=== PATIENT | male | born 1960 | race American Indian/Alaskan Native ===

== ENCOUNTER 2017-05-21 21:21 | Inpatient (IN) | payer MEDICAID ==
[2017-05-21 22:11] LABS: Bilirubin,Urine NEG (Negative); Blood,Urine NEG (Negative); Color,Urine Colorless (Yellow); Mucus,Urine FEW /HPF; Urobilinogen,Urine < 2.0 mg/dL (<2.0)
[2017-05-21 22:15] LABS: WBC,Urine < 1.0 /HPF (0.0-6.0)
[2017-05-21 22:21] LABS: Basophils # (Auto) 0.1 K/mm3 (0.0-0.1); Basophils % (Auto) 1.1 % (0.0-1.8); Eosinophils # (Auto) 0.2 K/mm3 (0.0-0.4); Eosinophils % (Auto) 3.6 % (0.0-4.3); Hematocrit 31.6 % (35.5-45.6); Hemoglobin 10.1 gm/dl (11.8-15.2); Lymphocytes # (Auto) 1.2 K/mm3 (1.2-5.4); Lymphocytes % (Auto) 20.4 % (13.4-35.0); Mean Corpuscular HGB Conc 32 % (32-34); Mean Corpuscular Hemoglobin 27 pg (28-32); Mean Corpuscular Volume 85 fl (84-94); Monocytes # (Auto) 0.5 K/mm3 (0.0-0.8); Monocytes % (Auto) 8.5 % (0.0-7.3); Platelet Count 267 K/mm3 (140-440); Red Blood Count 3.73 M/mm3 (3.65-5.03); Red Cell Distribution Width 14.3 % (13.2-15.2)
[2017-05-21 22:26] LABS: Amphetamine Screen,Urine PRESUMPTIVE NEGATIVE; Benzodiazepines Screen,Urine PRESUMPTIVE NEGATIVE; Cannabinoid Screen,Urine PRESUMPTIVE NEGATIVE; Cocaine Screen,Urine PRESUMPTIVE NEGATIVE; Methadone Screen,Urine PRESUMPTIVE NEGATIVE; Opiate Screen,Urine PRESUMPTIVE NEGATIVE
[2017-05-21] MEDS ORDERED: APRESOLINE IV ONE (22:39)
--- NOTE | 2017-05-21 22:49 | Cat Scan Report ---
FINAL REPORT PROCEDURE: CT HEAD/BRAIN WO CON TECHNIQUE: Computerized tomography of the head was performed without contrast material. HISTORY: Altered mental status COMPARISON: No prior studies are available for comparison. FINDINGS: No CT evidence of intracranial mass, hemorrhage, acute territorial infarction, or hydrocephalus. The intracranial arteries are symmetric in density. There is posterior scalp skin thickening and subcutaneous edema. No acute fracture is seen. Visualized paranasal sinuses and mastoids are aerated. IMPRESSION: No CT evidence of acute intracranial abnormality. Significant posterior scalp soft tissue swelling and skin thickening, possibly posttraumatic or related to infectious process. Correlate clinically
[2017-05-21 23:20] LABS: Albumin 3.9 g/dL (3.9-5); Calcium 8.7 mg/dL (8.4-10.2)
[2017-05-21] MEDS ORDERED: NACL 0.9% 1000 ML 1,000 ML IV ONE ×2 (23:39→23:44)
[2017-05-21] MEDS ORDERED: CALCIUM GLUCONATE 2,000 MG in NACL 0.9% 100 ML IV ONE (23:39)
[2017-05-21] MEDS ORDERED: HumuLIN R IV ONE (23:39)
[2017-05-21] MEDS ORDERED: D50W (25GM) Syringe IV ONE (23:39)
[2017-05-21] MEDS ORDERED: PROVENTIL IH ONE (23:40)
[2017-05-21] MEDS ORDERED: D50W (25GM) Syringe IV PRN (23:43)
[2017-05-21] MEDS ORDERED: KIONEX PO ONE (23:43)
[2017-05-21] MEDS ORDERED: HumuLIN R 100 UNITS in NACL 0.9% 99 ML IV SCH (23:45)
--- NOTE | 2017-05-21 23:45 | Emergency Department Report ---
ED General Adult HPI - General Chief complaint: Altered Mental Status Stated complaint: AMS Time Seen by Provider: 05/21/17 22:26 Source: family, EMS Mode of arrival: Stretcher Limitations: Altered Mental Status - History of Present Illness Initial comments: Patient is a 57-year-old male past medical history of hypertension and diabetes who presents with altered mental status. History is limited due to patient's altered mental status history is obtained by patient's daughter. Patient was the patient's daughter. She states that patient has been acting confused and is not asB responsive as he normally is. Patient's daughter states that he just has diabetes and high blood pressure but he has been confused like this before in the past. Patient has no fever no vomiting and is not complaining of any pain. - Related Data Allergies Allergy/AdvReac Type Severity Reaction Status Date / Time No Known Allergies Allergy Verified 05/21/17 23:40 ED Review of Systems ROS: Stated complaint: AMS Other details as noted in HPI Comment: Unobtainable due to pts medical conditions (altered mental status) ED Past Medical Hx - Past Medical History Hx Hypertension: Yes Hx Diabetes: Yes - Surgical History Past Surgical History?: No ED Physical Exam - General Limitations: Altered Mental Status ED Course Vital Signs 05/21/17 05/21/17 05/21/17 22:24 22:26 22:31 Temperature Pulse Rate 81 81 Respiratory 14 20 Rate Blood Pressure 228/117 Blood Pressure [Right] O2 Sat by Pulse 98 98 100 Oximetry 05/21/17 05/21/17 05/21/17 22:35 22:38 22:40 Temperature 97.9 F Pulse Rate 82 82 80 Respiratory 8 L 20 10 L Rate Blood Pressure 228/117 228/117 216/120 Blood Pressure 228/117 [Right] O2 Sat by Pulse 99 98 99 Oximetry 05/21/17 05/21/17 05/21/17 22:45 22:48 22:49 Temperature Pulse Rate 85 82 Respiratory 13 20 Rate Blood Pressure 216/120 Blood Pressure [Right] O2 Sat by Pulse 98 98 Oximetry 05/21/17 05/21/17 05/21/17 22:51 22:55 23:00 Temperature Pulse Rate 80 83 89 Respiratory 9 L 12 11 L Rate Blood Pressure 216/120 216/120 206/99 Blood Pressure [Right] O2 Sat by Pulse 98 96 98 Oximetry 05/21/17 05/21/1705/21/18 23:05 23:11 23:15 Temperature Pulse Rate 91 H 90 92 H Respiratory 14 17 13 Rate Blood Pressure 206/99 206/99 206/99 Blood Pressure [Right] O2 Sat by Pulse 100 100 99 Oximetry 05/21/17 05/21/17 23:20 23:25 Temperature Pulse Rate 88 91 H Respiratory 13 20 Rate Blood Pressure 189/96 189/96 Blood Pressure [Right] O2 Sat by Pulse 100 98 Oximetry - Consultations Consultation #1: 05/22/17 00:05 Consulted with pharmaceutical analyst conventional mortgage underwriter . He recommended patient to have Montilla placed and IV fluids and a dose of Kayexalate. He also recommended patient to be started on insulin drip. ED Medical Decision Making - Lab Data Result diagrams: 05/21/17 22:09 05/21/17 22:46 Lab Results 05/21/17 05/21/17 05/21/17 Range/Units 22:09 22:09 22:46 WBC 5.8 (4.5-11.0) K/mm3 RBC 3.73 (3.65-5.03) M/mm3 Hgb 10.1 L (11.8-15.2) gm/dl Hct 31.6 L (35.5-45.6) % MCV 85 (84-94) fl MCH 27 L (28-32) pg MCHC 32 (32-34) % RDW 14.3 (13.2-15.2) % Plt Count 267 (140-440) K/mm3 Lymph % (Auto) 20.4 (13.4-35.0) % [place] % (Auto) 8.5 H (0.0-7.3) % Eos % (Auto) 3.6 (0.0-4.3) % Baso % (Auto) 1.1 (0.0-1.8) % Lymph # 1.2 (1.2-5.4) K/mm3 [place] # 0.5 (0.0-0.8) K/mm3 Eos # 0.2 (0.0-0.4) K/mm3 Baso # 0.1 (0.0-0.1) K/mm3 Seg Neutrophils % 66.4 (40.0-70.0) % Seg Neutrophils # 3.9 (1.8-7.7) K/mm3 Sodium 121 L (137-145) mmol/L Potassium 6.7 H* (3.6-5.0) mmol/L Chloride 83.2 L (98-107) mmol/L Carbon Dioxide 26 (22-30) mmol/L Anion Gap 19 mmol/L BUN 22 H (9-20) mg/dL Creatinine 1.8 H (0.8-1.5) mg/dL Estimated GFR 47 ml/min BUN/Creatinine Ratio 12 % Glucose 831 H* (75-100) mg/dL Calcium 8.7 (8.4-10.2) mg/dL Total Bilirubin 0.20 (0.1-1.2) mg/dL AST 13 (5-40) units/L ALT 11 (7-56) units/L Alkaline Phosphatase 124 (35-129) units/L Total Protein 7.4 (6.3-8.2) g/dL Albumin 3.9 (3.9-5) g/dL Albumin/Globulin Ratio 1.1 % TSH (0.270-4.200) mlU/mL Urine Color (Yellow) Urine Turbidity (Clear) Urine pH (5.0-7.0) Ur Specific [place] (1.003-1.030) Urine Protein (Negative) mg/dL Urine Glucose (UA) (Negative) mg/dL Urine Ketones (Negative) mg/dL Urine Blood (Negative) Urine Nitrite (Negative) Urine Bilirubin (Negative) Urine Urobilinogen (<2.0) mg/dL Ur Leukocyte Esterase (Negative) Urine WBC (Auto) (0.0-6.0) /HPF Urine RBC (Auto) (0.0-6.0) /HPF Urine Mucus /HPF Urine Opiates Screen Urine Methadone Screen Ur Barbiturates Screen Ur Phencyclidine Scrn Ur Amphetamines Screen U Benzodiazepines Scrn Urine Cocaine Screen U Marijuana (THC) Screen Drugs of Abuse Note Plasma/Serum Alcohol < 0.01 (0-0.07) % 05/21/17 05/21/17 05/21/17 Range/Units 22:46 Unknown Unknown WBC (4.5-11.0) K/mm3 RBC (3.65-5.03) M/mm3 Hgb (11.8-15.2) gm/dl Hct (35.5-45.6) % MCV (84-94) fl MCH (28-32) pg MCHC (32-34) % RDW (13.2-15.2) % Plt Count (140-440) K/mm3 Lymph % (Auto) (13.4-35.0) % [place] % (Auto) (0.0-7.3) % Eos % (Auto) (0.0-4.3) % Baso % (Auto) (0.0-1.8) % Lymph # (1.2-5.4) K/mm3 [place] # (0.0-0.8) K/mm3 Eos # (0.0-0.4) K/mm3 Baso # (0.0-0.1) K/mm3 Seg Neutrophils % (40.0-70.0) % Seg Neutrophils # (1.8-7.7) K/mm3 Sodium (137-145) mmol/L Potassium (3.6-5.0) mmol/L Chloride (98-107) mmol/L Carbon Dioxide (22-30) mmol/L Anion Gap mmol/L BUN (9-20) mg/dL Creatinine (0.8-1.5) mg/dL Estimated GFR ml/min BUN/Creatinine Ratio % Glucose (75-100) mg/dL Calcium (8.4-10.2) mg/dL Total Bilirubin (0.1-1.2) mg/dL AST (5-40) units/L ALT (7-56) units/L Alkaline Phosphatase (35-129) units/L Total Protein (6.3-8.2) g/dL Albumin (3.9-5) g/dL Albumin/Globulin Ratio % TSH 1.420 (0.270-4.200) mlU/mL Urine Color Colorless (Yellow) Urine Turbidity Clear (Clear) Urine pH 7.0 (5.0-7.0) Ur Specific [place] 1.017 (1.003-1.030) Urine Protein 30 mg/dl (Negative) mg/dL Urine Glucose (UA) >=500 (Negative) mg/dL Urine Ketones Neg (Negative) mg/dL Urine Blood Neg (Negative) Urine Nitrite Neg (Negative) Urine Bilirubin Neg (Negative) Urine Urobilinogen < 2.0 (<2.0) mg/dL Ur Leukocyte Esterase Neg (Negative) Urine WBC (Auto) < 1.0 (0.0-6.0) /HPF Urine RBC (Auto) 1.0 (0.0-6.0) /HPF Urine Mucus Few /HPF Urine Opiates Screen Presumptive negative Urine Methadone Screen Presumptive negative Ur Barbiturates Screen Presumptive negative Ur Phencyclidine Scrn Presumptive negative Ur Amphetamines Screen Presumptive negative U Benzodiazepines Scrn Presumptive negative Urine Cocaine Screen Presumptive negative U Marijuana (THC) Screen Presumptive negative Drugs of Abuse Note Disclamer Plasma/Serum Alcohol (0-0.07) % - EKG Data -: EKG Interpreted by Me - EKG Data 05/22/17 00:03 EKG shows sinus rhythm with LVH no ST segment elevation noted, no T-wave inversion no, Peaked T waves, normal axis - Radiology Data Radiology results: image reviewed CT head: Shows no acute intracranial abnormality Left foot x-ray: Postoperative changes of amputation no acute abnormality. - Medical Decision Making Chief medical diagnosis: Hyperosmolar non ketotic state differential medical diagnosis: DKA, Hyperkalemia, dehydration, subdural hemorrhage. I will get IV fluids, insulin drip, nephrology consult, EKG, CBC, BMP, IV calcium, albuterol and I will admit patient to the hospital due to patient's life-threatening condition. Discussed plan with patient's daughter. Patient's daughter Agrees with plan. Critical Care Time: Yes (35) Critical care time in (mins) excluding proc time.: 35 Critical care attestation.: If time is entered above; I have spent that time in minutes in the direct care of this critically ill patient, excluding procedure time. Critical care time spent at patient's bedside 20 minutes Critical care time spent with consultants 10 minutes Critical care time spent with patient's family 5 minutes ED Disposition Clinical Impression: Hyperkalemia, Dehydration, CHIDI (acute kidney injury), Encephalopathy Hyperglycemia due to type 2 diabetes mellitus Qualifiers: Diabetes mellitus mcc insulin use: unspecified applications programmer insulin use status Qualified Code(s): E11.65 - Type 2 diabetes mellitus with hyperglycemia Disposition: OP ADMIT IP TO THIS HOSP Is pt being admited?: No Does the pt Need Aspirin: No Condition: Serious Instructions: Diabetes Mellitus Type 2 in Adults (ED) Referrals: ADRIANNA ROYAL MD [Primary Care Provider] - 3-5 Days
--- NOTE | 2017-05-22 | XRay Report ---
FINAL REPORT PROCEDURE: XR FOOT 2V LT TECHNIQUE: LEFT foot radiographs, AP and lateral views. HISTORY: diabetic ulcer COMPARISON: No prior studies are available for comparison. FINDINGS: There has been amputation of the 4th and 5th digits at the metatarsal bones. Graft there is no acute fracture or malalignment. There is no destructive bony process. Soft tissues are within normal limits. There is a small inferior calcaneal spur. IMPRESSION: There are postsurgical changes as described. There is no acute bony or soft tissue abnormality.
[2017-05-22] MEDS ORDERED: D50W (25GM) Syringe IV PRN (00:30)
[2017-05-22] MEDS ORDERED: NACL 0.9% 1000 ML 2,000 ML IV ONE (00:30)
[2017-05-22] MEDS ORDERED: ZOFRAN IV PRN ×2 (00:32→00:36)
[2017-05-22] MEDS ORDERED: TYLENOL PO PRN ×2 (00:32→00:36)
[2017-05-22] MEDS ORDERED: SODIUM CHLORIDE FLUSH SYRINGE 10 ML IV PRN ×2 (00:32→00:36)
[2017-05-22] MEDS ORDERED: MILK OF MAGNESIA PO PRN (00:36)
[2017-05-22] MEDS ORDERED: REGLAN PO PRN (00:36)
[2017-05-22] MEDS ORDERED: DULCOLAX PR PRN (00:36)
[2017-05-22] MEDS ORDERED: PHENERGAN PR PRN (00:36)
[2017-05-22 00:46] LABS: Calcium 8.9 mg/dL (8.4-10.2)
--- NOTE | 2017-05-22 00:57 | History and Physical Report ---
History of Present Illness Date of examination: 05/22/17 Chief complaint: Confusion History of present illness: 57 year old -[place] male with past medical history significant for type 2 diabetes mellitus, medication noncompliance, diabetic foot ulcer status post amputation of the the left toe, hypertension, congestive heart failure presented to the emergency department for complaints of confusion. Last night the patient tried to text his daughter but he couldn't. He became confused and dysarthria. Per his daughter the patient has right facial droop with right arm weakness that resolved. Denied loss of consciousness, seizure activity, chest pain, fever. Patient didn't take any insulin since last October. The emergency department glucose level was in the 800s, he has CHIDI with hyperkalemia, blood pressure was in the 200s. Patient started on insulin drip, workup for stroke, left foot abscess. Patient admitted to ICU for further management. History is obtained from patient and his daughter. Patient moved from [place] a year ago. REVIEW OF SYSTEMS: GENERAL: no weight change, no fatigue, no fever HEAD: no head ache EYES: no blurry vision, no acute visual loss EARS: no hearing loss, no discharge, no earache NOSE: no stuffiness, no sneezing, no discharge MOUTH, THROAT AND NECK: no bleeding gums, no sore throat, no swollen neck CARDIAC: no palpitations, no dyspnea on exertion, no orthopnea, no PND, no edema , no chest pain RESPIRATORY: no shortness of breath, no wheeze, no cough, no sputum, no hemoptysis, no asthma GI: no decreased appetite, no nausea, no vomiting, no dysphagia, no diarrhea, no constipation, no abdominal pain URINARY: no change in frequency, no urgency, no polyuria, no hematuria, no incontinence MUSCULOSKELETAL: left foot ulcer NEUROLOGIC: no loss of sensation/numbness, no tingling, no tremors, no weakness/ paralysis HEMATOLOGIC: no anemia, no easy bruising ENDOCRINE: no heat/cold intolerance, no polyuria, no polydipsia, no thyroid problems PSYCHIATRIC: no anxiety, no depression, no suicidal ideations Past History Past Medical History: diabetes, heart failure, hypertension Past Surgical History: Other ( left foot surgery) Social history: full code. denies: smoking, alcohol abuse, prescription drug abuse, IV drug use Family history: CAD (runs in the family), diabetes (runs in the family) Medications and Allergies Allergies Allergy/AdvReac Type Severity Reaction Status Date / Time No Known Allergies Allergy Verified 05/21/17 23:40 Active Meds: Active Medications Acetaminophen (Tylenol) 650 mg PO Q4H PRN PRN Reason: Pain MILD(1-3)/Fever >100.5/VILLAFUERTE Acetaminophen (Tylenol) 650 mg PO Q4H PRN PRN Reason: Pain, Mild (1-3) Aspirin (Aspirin) 300 mg IN QDAY SHANNON Bisacodyl (Dulcolax) 10 mg IN QDAY PRN PRN Reason: Constipation Dextrose (D50w (25gm) Syringe) 0 ml IV PRN PRN PRN Reason: Hypoglycemia Famotidine (Pepcid) 20 mg IV BID SHANNON Heparin Sodium (Porcine) (Heparin) 5,000 unit SUB-Q Q12HR SHANNON Insulin Human Regular 100 (units/ Sodium Chloride) 100 mls @ 1 mls/hr IV TITR SHANNON; Protocol Stop: 05/22/17 00:59 Last Admin: 05/22/17 00:36 Dose: 8 units/hr, 8 mls/hr Sodium Chloride (Nacl 0.9% 1000 Ml) 2,000 mls @ 999 mls/hr IV BOLUS ONE Stop: 05/22/17 02:30 Insulin Human Regular 100 (units/ Sodium Chloride) 100 mls @ 1 mls/hr IV TITR SHANNON; Protocol Vancomycin HCl 2,000 mg/ (Sodium Chloride) 520 mls @ 250 mls/hr IV ONCE ONE Stop: 05/22/17 03:04 Nicardipine HCl 50 mg/ Sodium (Chloride) 250 mls @ 25 mls/hr IV TITR SHANNON; Protocol Magnesium Hydroxide (Milk Of Magnesia) 30 ml PO Q4H PRN PRN Reason: Constipation Metoclopramide HCl (Reglan) 10 mg PO Q6H PRN PRN Reason: Nausea And Vomiting Morphine Sulfate (Morphine) 2 mg IV Q4H PRN PRN Reason: Pain , Severe (7-10) Ondansetron HCl (Zofran) 4 mg IV Q8H PRN PRN Reason: Nausea And Vomiting Ondansetron HCl (Zofran) 4 mg IV Q8H PRN PRN Reason: N/V unrelieved by Reglan Promethazine HCl (Phenergan) 25 mg IN Q6H PRN PRN Reason: Nausea And Vomiting Sodium Chloride (Sodium Chloride Flush Syringe 10 Ml) 10 ml IV BID SHANNON Sodium Chloride (Sodium Chloride Flush Syringe 10 Ml) 10 ml IV PRN PRN PRN Reason: LINE FLUSH Sodium Chloride (Sodium Chloride Flush Syringe 10 Ml) 10 ml INJ PRN PRN PRN Reason: LINE FLUSH Vancomycin HCl (Vancomycin Pharmacy To Dose) 1 each IV PKCONSULT SHANNON; Protocol Exam - Physical Exam Narrative exam: Not in cardiopulmonary distress. The patient is obese. Vital signs as documented. Head exam is unremarkable. No scleral icterus . Neck is without jugular venous distension, thyromegaly, or carotid bruits. Lungs are clear to auscultation. Cardiac exam reveals regular rate and Rhythm. First and second heart sounds normal. No murmurs, rubs or gallops. Abdominal exam reveals normal bowel sounds, no masses, no organomegaly and no aortic enlargement. Extremities right toe amputation, abscess. [employer]: Alert and oriented 3. No focal weakness. - Constitutional Vitals: Temp Pulse Resp BP Pulse Ox 97.9 F 85 22 189/96 98 05/21/17 22:38 05/21/17 23:50 05/21/17 23:50 05/21/17 23:25 05/21/17 23:25 Results - Labs CBC & Chem 7: 05/21/17 22:09 05/22/17 00:01 Labs: Laboratory Last Values WBC 5.8 K/mm3 (4.5-11.0) 05/21/17 22:09 RBC 3.73 M/mm3 (3.65-5.03) 05/21/17 22:09 Hgb 10.1 gm/dl (11.8-15.2) L 05/21/17 22:09 Hct 31.6 % (35.5-45.6) L 05/21/17 22:09 MCV 85 fl (84-94) 05/21/17 22:09 MCH 27 pg (28-32) L 05/21/17 22:09 MCHC 32 % (32-34) 05/21/17 22:09 RDW 14.3 % (13.2-15.2) 05/21/17 22:09 Plt Count 267 K/mm3 (140-440) 05/21/17 22:09 Lymph % (Auto) 20.4 % (13.4-35.0) 05/21/17 22:09 Esmeralda % (Auto) 8.5 % (0.0-7.3) H 05/21/17 22:09 Eos % (Auto) 3.6 % (0.0-4.3) 05/21/17 22:09 Baso % (Auto) 1.1 % (0.0-1.8) 05/21/17 22:09 Lymph # 1.2 K/mm3 (1.2-5.4) 05/21/17 22:09 Esmeralda # 0.5 K/mm3 (0.0-0.8) 05/21/17 22:09 Eos # 0.2 K/mm3 (0.0-0.4) 05/21/17 22:09 Baso # 0.1 K/mm3 (0.0-0.1) 05/21/17 22:09 Seg Neutrophils % 66.4 % (40.0-70.0) 05/21/17 22:09 Seg Neutrophils # 3.9 K/mm3 (1.8-7.7) 05/21/17 22:09 Sodium 124 mmol/L (137-145) L 05/22/17 00:01 Potassium 6.7 mmol/L (3.6-5.0) H* 05/21/17 22:46 Chloride 86.0 mmol/L (98-107) L 05/22/17 00:01 Carbon Dioxide 22 mmol/L (22-30) 05/22/17 00:01 Anion Gap 21 mmol/L 05/22/17 00:01 BUN 22 mg/dL (9-20) H 05/22/17 00:01 Creatinine 1.7 mg/dL (0.8-1.5) H 05/22/17 00:01 Estimated GFR 50 ml/min 05/22/17 00:01 BUN/Creatinine Ratio 13 % 05/22/17 00:01 Glucose 831 mg/dL (75-100) H* 05/21/17 22:46 Calcium 8.9 mg/dL (8.4-10.2) 05/22/17 00:01 Phosphorus 2.20 mg/dL (2.5-4.5) L 05/22/17 00:01 Magnesium 2.20 mg/dL (1.7-2.3) 05/22/17 00:01 Total Bilirubin 0.20 mg/dL (0.1-1.2) 05/21/17 22:46 AST 13 units/L (5-40) 05/21/17 22:46 ALT 11 units/L (7-56) 05/21/17 22:46 Alkaline Phosphatase 124 units/L (35-129) 05/21/17 22:46 Total Protein 7.4 g/dL (6.3-8.2) 05/21/17 22:46 Albumin 3.9 g/dL (3.9-5) 05/21/17 22:46 Albumin/Globulin Ratio 1.1 % 05/21/17 22:46 TSH 1.420 mlU/mL (0.270-4.200) 05/21/17 22:46 Urine Color Colorless (Yellow) 05/21/17 Unknown Urine Turbidity Clear (Clear) 05/21/17 Unknown Urine pH 7.0 (5.0-7.0) 05/21/17 Unknown Ur Specific [place] 1.017 (1.003-1.030) 05/21/17 Unknown Urine Protein 30 mg/dl mg/dL (Negative) 05/21/17 Unknown Urine Glucose (UA) >=500 mg/dL (Negative) 05/21/17 Unknown Urine Ketones Neg mg/dL (Negative) 05/21/17 Unknown Urine Blood Neg (Negative) 05/21/17 Unknown Urine Nitrite Neg (Negative) 05/21/17 Unknown Urine Bilirubin Neg (Negative) 05/21/17 Unknown Urine Urobilinogen < 2.0 mg/dL (<2.0) 05/21/17 Unknown Ur Leukocyte Esterase Neg (Negative) 05/21/17 Unknown Urine WBC (Auto) < 1.0 /HPF (0.0-6.0) 05/21/17 Unknown Urine RBC (Auto) 1.0 /HPF (0.0-6.0) 05/21/17 Unknown Urine Mucus Few /HPF 05/21/17 Unknown Urine Opiates Screen Presumptive negative 05/21/17 Unknown Urine Methadone Screen Presumptive negative 05/21/17 Unknown Ur Barbiturates Screen Presumptive negative 05/21/17 Unknown Ur Phencyclidine Scrn Presumptive negative 05/21/17 Unknown Ur Amphetamines Screen Presumptive negative 05/21/17 Unknown U Benzodiazepines Scrn Presumptive negative 05/21/17 Unknown Urine Cocaine Screen Presumptive negative 05/21/17 Unknown U Marijuana (THC) Screen Presumptive negative 05/21/17 Unknown Drugs of Abuse Note Disclamer 05/21/17 Unknown Plasma/Serum Alcohol < 0.01 % (0-0.07) 05/21/17 22:09 - Imaging and Cardiology EKG: image reviewed (NSR, no acute ischemia) CT Scan - head: report reviewed (no acute intracrania abnormalities) Assessment and Plan Assessment and plan: [facility] - Patient's blood sugar is the 800's - Patient is being managed according to [facility] protocol Hypertensive emergency - On nicardipine drip Acute metabolic encephalopathy/ hypertensive encephalopathy - Manage underlying cause - Supportive care TIA, right facial droop and arm weakness, now resolved - Stroke work up - Neurology consult Left Diabetic foot ulcer/ abscess - Wound culture, MRI - On IV antibiotics, ID and wound surgeon consult, wound care nurse consult Medication non compliance due to insurance issue - 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 The aggregate critical care time was [45] minutes. This time is in addition to time spent performing reported procedures but includes the following: [x] Data Review and interpretation [x] Patient assessment and monitoring of vital signs [x] Documentation [x] Medication orders and management DVT prophylaxis - On heparin Disposition - Admit to ICU Advance Directives: Yes (Full code) VTE prophylaxis?: Chemical Plan of care discussed with patient/family: Yes
[2017-05-22] MEDS ORDERED: CARDENE 50 MG in NACL 0.9% 250ML 230 ML IV SCH (01:00)
[2017-05-22] MEDS ORDERED: VANCOMYCIN 2,000 MG in NACL 0.9% 500 ML 500 ML IV ONE (01:00)
[2017-05-22] MEDS ORDERED: VANCOMYCIN PHARMACY TO DOSE IV SCH (01:00)
--- NOTE | 2017-05-22 01:07 | XRay Report ---
FINAL REPORT PROCEDURE: XR CHEST 1V AP TECHNIQUE: Chest radiograph anteroposterior view. CPT 97936 HISTORY: hyperkalemia COMPARISON: No prior studies are available for comparison. FINDINGS: Heart: Normal. Mediastinum/Vessels: Normal. Lungs/Pleural space: There is suboptimal inspiration. There are no infiltrates, effusions or pneumothoraces.. Bony thorax: No acute osseous abnormality. Life support devices: None. IMPRESSION: No acute cardiopulmonary abnormality.
[2017-05-22] MEDS: HumuLIN R 100 UNITS in NACL 0.9% 99 ML IV SCH ×3 (01:25→03:54)
[2017-05-22] MEDS ORDERED: NACL 0.9% 1000 ML 1,000 ML ONE (02:02)
[2017-05-22 02:57] LABS: INR 0.84 (0.87-1.13)
[2017-05-22 03:06] LABS: Calcium 8.9 mg/dL (8.4-10.2)
[2017-05-22 03:08] LABS: Creatine Kinase MB 1.8 ng/mL (0.0-4.0)
[2017-05-22] MEDS ORDERED: MORPHINE ONE (03:44)
[2017-05-22] MEDS: MORPHINE IV PRN ×2 (04:02→09:25)
[2017-05-22] MEDS ORDERED: D5/0.45NS 1,000 ML IV SCH (06:26)
[2017-05-22] MEDS ORDERED: LEVEMIR (NF) SUB-Q SCH (08:00)
[2017-05-22] MEDS: HEPARIN SUB-Q SCH ×2 (09:31→21:24)
[2017-05-22] MEDS: PEPCID IV SCH ×2 (09:31→21:24)
[2017-05-22] MEDS: ASPIRIN PR SCH (09:31)
[2017-05-22] MEDS: SODIUM CHLORIDE FLUSH SYRINGE 10 ML IV SCH ×2 (10:00→21:31)
[2017-05-22] MEDS ORDERED: NORVASC PO SCH (11:00)
[2017-05-22] MEDS: LOPRESSOR PO SCH ×2 (11:02→21:24)
--- NOTE | 2017-05-22 11:04 | Consultation ---
History of Present Illness Consult date: 05/22/17 Requesting physician: STEPHANIE MCGEE Reason for consult: other (DKA, malignant hypertension) History of present illness: 57 year old -[place] male with past medical history significant for type 2 diabetes mellitus, medication noncompliance, diabetic foot ulcer status post amputation of the the left toe, hypertension, congestive heart failure presented to the emergency department for complaints of confusion. Last night the patient tried to text his daughter but he couldn't. He became confused and dysarthria. Per his daughter the patient has right facial droop with right arm weakness that resolved. Denied loss of consciousness, seizure activity, chest pain, fever. Patient didn't take any insulin since last October. The emergency department glucose level was in the 800s, he has CHIDI with hyperkalemia, blood pressure was in the 200s. Patient started on insulin drip, workup for stroke, left foot abscess. Patient admitted to ICU for further management. History is per the medical records. Patient moved from [place] a year ago. Patient was seen and examined. Vitals, labs, medications, chart reviewed. He complains of pain in his foot. IV morphine was administered by the RN, currently very sleepy and cannot stay awake long enough for me to get a hisotry. He will give monosyllabic answers to questions and he is protecting his airway. RN reports difficulty in controlling his BP...cardene infusion was discontinued this morning. REVIEW OF SYSTEMS: GENERAL: no weight change, no fatigue, no fever HEAD: no head ache EYES: no blurry vision, no acute visual loss EARS: no hearing loss, no discharge, no earache NOSE: no stuffiness, no sneezing, no discharge MOUTH, THROAT AND NECK: no bleeding gums, no sore throat, no swollen neck CARDIAC: no palpitations, no dyspnea on exertion, no orthopnea, no PND, no edema , no chest pain RESPIRATORY: no shortness of breath, no wheeze, no cough, no sputum, no hemoptysis, no asthma GI: no decreased appetite, no nausea, no vomiting, no dysphagia, no diarrhea, no constipation, no abdominal pain URINARY: no change in frequency, no urgency, no polyuria, no hematuria, no incontinence MUSCULOSKELETAL: left foot ulcer with pain NEUROLOGIC: no loss of sensation/numbness, no tingling, no tremors, no weakness/ paralysis HEMATOLOGIC: no anemia, no easy bruising ENDOCRINE: no heat/cold intolerance, no polyuria, no polydipsia, no thyroid problems PSYCHIATRIC: no anxiety, no depression, no suicidal ideations Past History Past Medical History: diabetes, heart failure, hypertension Past Surgical History: Other ( left foot surgery) Social history: full code. denies: smoking, alcohol abuse, prescription drug abuse, IV drug use Family history: CAD (runs in the family), diabetes (runs in the family) Medications and Allergies Allergies Allergy/AdvReac Type Severity Reaction Status Date / Time No Known Allergies Allergy Verified 05/21/17 23:40 Active Meds: Active Medications Acetaminophen (Tylenol) 650 mg PO Q4H PRN PRN Reason: Pain MILD(1-3)/Fever >100.5/VILLAFUERTE Amlodipine Besylate (Norvasc) 5 mg PO QDAY [facility] Aspirin (Aspirin) 300 mg [place] QDAY [facility] Last Admin: 05/22/17 09:31 Dose: 300 mg Bisacodyl (Dulcolax) 10 mg [place] QDAY PRN PRN Reason: Constipation Dextrose (D50w (25gm) Syringe) 0 ml IV PRN PRN PRN Reason: Hypoglycemia Famotidine (Pepcid) 20 mg IV BID [facility] Last Admin: 05/22/17 09:31 Dose: 20 mg Heparin Sodium (Porcine) (Heparin) 5,000 unit SUB-Q Q12HR [facility] Last Admin: 05/22/17 09:31 Dose: 5,000 unit Insulin Human Regular 100 (units/ Sodium Chloride) 100 mls @ 1 mls/hr IV TITR [facility]; Protocol Last Titration: 05/22/17 10:14 Dose: 1.5 units/hr, 1.5 mls/hr Nicardipine HCl 50 mg/ Sodium (Chloride) 250 mls @ 25 mls/hr IV TITR [facility]; Protocol Last Titration: 05/22/17 05:00 Dose: 0 mg/hr, 0 mls/hr Vancomycin HCl 1,750 mg/ (Sodium Chloride) 517.5 mls @ 333.333 mls/hr IV Q12H [facility] Dextrose/Sodium Chloride (D5/0.45ns) 1,000 mls @ 125 mls/hr IV DIRECT [facility] Magnesium Hydroxide (Milk Of Magnesia) 30 ml PO Q4H PRN PRN Reason: Constipation Metoclopramide HCl (Reglan) 10 mg PO Q6H PRN PRN Reason: Nausea And Vomiting Metoprolol Tartrate (Lopressor) 25 mg PO BID [facility] Morphine Sulfate (Morphine) 2 mg IV Q4H PRN PRN Reason: Pain , Severe (7-10) Last Admin: 05/22/17 09:25 Dose: 2 mg Ondansetron HCl (Zofran) 4 mg IV Q8H PRN PRN Reason: N/V unrelieved by Reglan Promethazine HCl (Phenergan) 25 mg [place] Q6H PRN PRN Reason: Nausea And Vomiting Sodium Chloride (Sodium Chloride Flush Syringe 10 Ml) 10 ml IV BID [facility] Sodium Chloride (Sodium Chloride Flush Syringe 10 Ml) 10 ml IV PRN PRN PRN Reason: LINE FLUSH Vancomycin HCl (Vancomycin Pharmacy To Dose) 1 each IV PKCONSULT [facility]; Protocol Physical Examination Vital signs: Vital Signs Pulse Ox 98 05/21/17 22:24 Not in cardiopulmonary distress. The patient is obese. Vital signs as documented. Head exam is unremarkable. No scleral icterus . Neck is without jugular venous distension, thyromegaly, or carotid bruits. Lungs are clear to auscultation. Cardiac exam reveals regular rate and Rhythm. First and second heart sounds normal. No murmurs, rubs or gallops. Abdominal exam reveals normal bowel sounds, no masses, no organomegaly and no aortic enlargement. Extremities right toe amputation, abscess. WIRE WELDER: Alert and oriented 3. No focal weakness. Results - Laboratory Findings CBC and BMP: 05/21/17 22:09 05/22/17 08:43 PT/INR, D-dimer PT 11.9 Sec. (12.2-14.9) L 05/22/17 02:20 INR 0.84 (0.87-1.13) L 05/22/17 02:20 Abnormal lab findings: Abnormal Labs 05/21/17 05/21/17 05/22/17 22:09 22:46 00:01 Hgb 10.1 L Hct 31.6 L MCH 27 L [place] % (Auto) 8.5 H PT INR Sodium 121 L Potassium 6.7 H* Chloride 83.2 L BUN 22 H Creatinine 1.8 H Glucose 831 H* POC Glucose Hemoglobin A1c Phosphorus 2.20 L 05/22/17 05/22/17 05/22/17 00:01 02:20 02:20 Hgb Hct MCH [place] % (Auto) PT INR Sodium 124 L Potassium 5.1 H D Chloride 86.0 L BUN 22 H Creatinine 1.7 H Glucose 767 H* POC Glucose Hemoglobin A1c 15.7 H Phosphorus 1.70 L D 05/22/17 05/22/17 05/22/17 02:20 02:20 02:26 Hgb Hct MCH [place] % (Auto) PT 11.9 L INR 0.84 L Sodium 130 L Potassium Chloride 90.5 L BUN Creatinine 1.7 H Glucose 508 H* POC Glucose 458 H Hemoglobin A1c Phosphorus 05/22/17 05/22/17 05/22/17 03:52 05:01 05:55 Hgb Hct MCH [place] % (Auto) PT INR Sodium Potassium Chloride BUN Creatinine Glucose POC Glucose 367 H 270 H 206 H Hemoglobin A1c Phosphorus 05/22/17 05/22/17 05/22/17 06:46 06:48 08:16 Hgb Hct MCH [place] % (Auto) PT INR Sodium Potassium 3.4 L Chloride BUN Creatinine 1.6 H Glucose 166 H POC Glucose 179 H 120 H Hemoglobin A1c Phosphorus 05/22/17 05/22/17 08:43 09:32 Hgb Hct MCH [place] % (Auto) PT INR Sodium Potassium Chloride BUN Creatinine 1.6 H Glucose 125 H POC Glucose 121 H Hemoglobin A1c Phosphorus Assessment and Plan Diabetic ketoacidosis Metabolic acidosis Malignant hypertension Acute encephalopathy(toxic, metabolic) Acute renal insufficiency Hyperkalemia Diabetic foot ulcer Documented history of medical non-compliance -Admit ICU -DKA mangement per protocol -Treated with kayexalate for hyperkalemia, follow up BMP -Avoid nephrotoxics and adjust medications for CrCL/GFR -Start on oral antihypertensive medications, if patient passes swallow evaluation -prn IV anti-hypertensives -Bedside swallow evaluation -MRI foot to r/o osteomyelitis -Wound care consult -Emprirc Vancomycin and Zosyn for diabetic foot ulcer, appears infected -VTE prophylaxis Critical care time in (mins) excluding proc time.: 35 Critical care attestation.: If time is entered above; I have spent that time in minutes in the direct care of this critically ill patient, excluding procedure time.
--- NOTE | 2017-05-22 11:14 | Event Note ---
Date: 05/22/17 Pt seen and examined Admitted for hyperglycemic coma Mental status now improved, BG much stabilized Will stop insulin drip, place on Novolin 70/30 If remains stable will transfer the pt out of ICU
[2017-05-22] MEDS: HumuLIN R SUB-Q SCH ×3 (11:59→21:53)
[2017-05-22] MEDS ORDERED: NACL 0.9% 1000 ML 1,000 ML IV SCH (12:00)
--- NOTE | 2017-05-22 12:19 | Consultation ---
History of Present Illness - Reason for Consult Consult date: 05/22/17 acute renal failure - History of Present Illness This is a 57 year old male with a past medical history of Hypertension, Diabetes Mellitus, CHF and Diabetic foot ulcers who presented to the E.R with a chief complaint of confusion with difficulty speaking. On evaluation in E.R patient was noted to have an elevated glucose level of 831 and blood pressure was noted to be 216/130. Patient was placed on insulin drip for DKA and also started on Nicardipine drip for Hypertension Emergency. Patient was also Hyperkalemic with a potassium level of 6.7 for which he received Kayexalate. Serum creatinine was noted to be elevated at 1.8 on admission which has trend down to 1.6 today with correction of Hyperglycemia. Baseline serum creatinine unknown. We are consulted for management of this patient's Acute Renal Failure. Past History Past Medical History: diabetes, heart failure, hypertension Past Surgical History: Other ( left foot surgery) Social history: full code. denies: smoking, alcohol abuse, prescription drug abuse, IV drug use Family history: CAD (runs in the family), diabetes (runs in the family) Medications and Allergies Allergies Allergy/AdvReac Type Severity Reaction Status Date / Time No Known Allergies Allergy Verified 05/21/17 23:40 Active Meds: Active Medications Acetaminophen (Tylenol) 650 mg PO Q4H PRN PRN Reason: Pain MILD(1-3)/Fever >100.5/VILLAFUERTE Amlodipine Besylate (Norvasc) 10 mg PO QDAY [facility] Aspirin (Aspirin) 300 mg [place] QDAY [facility] Last Admin: 05/22/17 09:31 Dose: 300 mg Bisacodyl (Dulcolax) 10 mg MS QDAY PRN PRN Reason: Constipation Dextrose (D50w (25gm) Syringe) 0 ml IV PRN PRN PRN Reason: Hypoglycemia Famotidine (Pepcid) 20 mg IV BID [facility] Last Admin: 05/22/17 09:31 Dose: 20 mg Heparin Sodium (Porcine) (Heparin) 5,000 unit SUB-Q Q12HR [facility] Last Admin: 05/22/17 09:31 Dose: 5,000 unit Nicardipine HCl 50 mg/ Sodium (Chloride) 250 mls @ 25 mls/hr IV TITR [facility]; Protocol Last Titration: 05/22/17 05:00 Dose: 0 mg/hr, 0 mls/hr Vancomycin HCl 1,750 mg/ (Sodium Chloride) 517.5 mls @ 333.333 mls/hr IV Q18H [facility] Sodium Chloride (Nacl 0.9% 1000 Ml) 1,000 mls @ 75 mls/hr IV DIRECT [facility] Insulin Human Isoph/Insulin Regular (Novolin 70/30) 10 unit SUB-Q BIDDIAB [facility] Last Admin: 05/22/17 11:58 Dose: 10 unit Insulin Human Regular (Novolin R) 0 units SUB-Q ACHS [facility]; Protocol Last Admin: 05/22/17 11:59 Dose: 2 units Lisinopril (Zestril) 40 mg PO QDAY [facility] Magnesium Hydroxide (Milk Of Magnesia) 30 ml PO Q4H PRN PRN Reason: Constipation Metoclopramide HCl (Reglan) 10 mg PO Q6H PRN PRN Reason: Nausea And Vomiting Metoprolol Tartrate (Lopressor) 25 mg PO BID [facility] Last Admin: 05/22/17 11:02 Dose: 25 mg Morphine Sulfate (Morphine) 2 mg IV Q4H PRN PRN Reason: Pain , Severe (7-10) Last Admin: 05/22/17 09:25 Dose: 2 mg Ondansetron HCl (Zofran) 4 mg IV Q8H PRN PRN Reason: N/V unrelieved by Reglan Promethazine HCl (Phenergan) 25 mg MS Q6H PRN PRN Reason: Nausea And Vomiting Sodium Chloride (Sodium Chloride Flush Syringe 10 Ml) 10 ml IV BID [facility] Sodium Chloride (Sodium Chloride Flush Syringe 10 Ml) 10 ml IV PRN PRN PRN Reason: LINE FLUSH Vancomycin HCl (Vancomycin Pharmacy To Dose) 1 each IV PKCONSULT [facility]; Protocol Review of Systems Constitutional: fatigue, no weight loss, no weight gain, no fever, no chills, no sweats Ears, nose, mouth and throat: no ear pain, no ear discharge, no tinnitis, no decreased hearing, no nose pain, no nasal congestion, no nasal discharge, no sinus pressure Cardiovascular: no chest pain, no orthopnea, no palpitations, no rapid/ irregular heart beat, no edema, no syncope, no lightheadedness, no shortness of breath Respiratory: no cough with sputum, no excessive sputum Gastrointestinal: no nausea, no vomiting, no diarrhea, no constipation Musculoskeletal: no neck pain, no shooting arm pain, no arm numbness/tingling, no low back pain, no shooting leg pain Integumentary: no rash, no pruritis, no redness, no sores, no wounds Neurological: no paralysis, no weakness, no parathesias, no numbness, no tingling, no seizures Psychiatric: no memory loss, no change in sleep habits, no sleep disturbances, no insomnia, no hypersomnia, no change in appetite Endocrine: no heat intolerance, no polyphagia, no excessive thirst, no polydipsia, no polyuria Hematologic/Lymphatic: no easy bruising, no lymphadenopathy, no lymphedema Exam - Vital Signs Vital signs: Vital Signs Pulse Ox 98 05/21/17 22:24 - General Appearance General appearance: well-developed, appears stated age EENT: ATNC, PERRL, hearing intact, vision intact Neck: Present: neck supple, trachea midline Respiratory: Decreased Breath Sounds Heart: tachycardia, S1S2 Gastrointestinal: Present: normoactive bowel sounds Integumentary: ulcer, other (Patient has large wound to left side of foot with half of toes amputated to left foot) Neurologic: alert and oriented x3 Musculoskeletal: Present: joint swelling, other (amputation of half of left toes and large wound noted to left foot) Results - Lab Results 05/21/17 22:09 05/22/17 08:43 Most recent lab results Calcium 9.0 mg/dL (8.4-10.2) 05/22/17 08:43 Phosphorus 1.70 mg/dL (2.5-4.5) L D 05/22/17 02:20 Magnesium 2.10 mg/dL (1.7-2.3) 05/22/17 02:20 Assessment and Plan - Patient Problems (1) CHIDI (acute kidney injury) Current Visit: Yes Status: Acute Plan to address problem: Renal function reviewed. Serum creatinine noted to be 1.6 today from 1.8 yesterday. Baseline serum creatinine unknown. Will obtain urine lytes- urine protein, urine creatinine and urine sodium Will obtain renal ultrasound Renally dose medications Obtain daily weights Monitor I/O's Monitor renal function closely (2) Diabetic ketoacidosis Current Visit: Yes Status: Acute Plan to address problem: S/P insulin drip Now on SQ insulin (3) Hypertension Current Visit: Yes Status: Acute Plan to address problem: On Nicardipine drip (4) Hyperkalemia Current Visit: Yes Status: Acute Plan to address problem: Received Kayexalate yesterday Resolved (5) Hypophosphatemia Current Visit: Yes Status: Acute Plan to address problem: K-phos 250 mg po QID x 1 (6) Ulcer of left foot Current Visit: Yes Status: Acute Plan to address problem: Wound dressing changes
[2017-05-22] MEDS: ZESTRIL PO SCH (13:34)
--- NOTE | 2017-05-22 13:58 | Consultation ---
History of Present Illness Consult date: 05/22/17 Reason for consult: other (Left foot diabetic ulcer - r/o abscess) - History of present illness History of present illness: 57 yo male admitted for DKA. IV insulin has been discontinued. I have been asked to r/o a left foot abscess. He is s/p left 4th and 5th toe amputations. Past History Past Medical History: diabetes, heart failure, hypertension Past Surgical History: Other ( left foot surgery) Social history: full code. denies: smoking, alcohol abuse, prescription drug abuse, IV drug use Family history: CAD (runs in the family), diabetes (runs in the family) Medications and Allergies Allergies Allergy/AdvReac Type Severity Reaction Status Date / Time No Known Allergies Allergy Verified 05/21/17 23:40 Active Meds: Active Medications Acetaminophen (Tylenol) 650 mg PO Q4H PRN PRN Reason: Pain MILD(1-3)/Fever >100.5/VILLAFUERTE Amlodipine Besylate (Norvasc) 10 mg PO QDAY [facility] Aspirin (Aspirin) 300 mg [place] QDAY [facility] Last Admin: 05/22/17 09:31 Dose: 300 mg Bisacodyl (Dulcolax) 10 mg [place] QDAY PRN PRN Reason: Constipation Dextrose (D50w (25gm) Syringe) 0 ml IV PRN PRN PRN Reason: Hypoglycemia Famotidine (Pepcid) 20 mg IV BID [facility] Last Admin: 05/22/17 09:31 Dose: 20 mg Heparin Sodium (Porcine) (Heparin) 5,000 unit SUB-Q Q12HR [facility] Last Admin: 05/22/17 09:31 Dose: 5,000 unit Nicardipine HCl 50 mg/ Sodium (Chloride) 250 mls @ 25 mls/hr IV TITR [facility]; Protocol Last Titration: 05/22/17 05:00 Dose: 0 mg/hr, 0 mls/hr Vancomycin HCl 1,750 mg/ (Sodium Chloride) 517.5 mls @ 333.333 mls/hr IV Q18H [facility] Sodium Chloride (Nacl 0.9% 1000 Ml) 1,000 mls @ 75 mls/hr IV DIRECT [facility] Insulin Human Isoph/Insulin Regular (Novolin 70/30) 10 unit SUB-Q BIDDIAB [facility] Last Admin: 05/22/17 11:58 Dose: 10 unit Insulin Human Regular (Novolin R) 0 units SUB-Q ACHS [facility]; Protocol Last Admin: 05/22/17 11:59 Dose: 2 units Lisinopril (Zestril) 40 mg PO QDAY [facility] Last Admin: 05/22/17 13:34 Dose: 40 mg Magnesium Hydroxide (Milk Of Magnesia) 30 ml PO Q4H PRN PRN Reason: Constipation Metoclopramide HCl (Reglan) 10 mg PO Q6H PRN PRN Reason: Nausea And Vomiting Metoprolol Tartrate (Lopressor) 25 mg PO BID [facility] Last Admin: 05/22/17 11:02 Dose: 25 mg Morphine Sulfate (Morphine) 2 mg IV Q4H PRN PRN Reason: Pain , Severe (7-10) Last Admin: 05/22/17 09:25 Dose: 2 mg Ondansetron HCl (Zofran) 4 mg IV Q8H PRN PRN Reason: N/V unrelieved by Reglan Promethazine HCl (Phenergan) 25 mg [place] Q6H PRN PRN Reason: Nausea And Vomiting Sodium Chloride (Sodium Chloride Flush Syringe 10 Ml) 10 ml IV BID [facility] Last Admin: 05/22/17 10:00 Dose: 10 ml Sodium Chloride (Sodium Chloride Flush Syringe 10 Ml) 10 ml IV PRN PRN PRN Reason: LINE FLUSH Sodium Phosphate (K-Phos Neutral) 250 mg PO QID ONE Stop: 05/22/17 14:01 Vancomycin HCl (Vancomycin Pharmacy To Dose) 1 each IV PKCONSULT [facility]; Protocol Review of Systems All systems: negative (none) Exam Vital Signs Pulse Ox 98 05/21/17 22:24 - General physical appearance Positive: well developed, well nourished, no distress - Eyes Positive: PERRL, normal occular movement - ENT Positive: normal pinna, normal nares, normal mucosa, no hearing loss, no congestion - Neck Positive: no masses, no bruits, trachea midline, no venous distension - Respiratory Positive: normal expansion, normal respiratory effort, clear to auscultation - Cardiovascular Rhythm: regular Heart Sounds: Present: S1 & S2. Absent: rub, click - Extremities Extremities: abnormal (Left foot is s/p 4th and 5th toe amputations. There is a 1.5 cm plantar ulcer along the lateral aspect of his midfoot without fluctuance or erythema. The soft tissue surrounding the ulcer is firm/ indurated. ) - Breasts Breasts: deferred - Abdomen Abdomen: Present: soft, bowel sounds normal. Absent: tender, distended Hernia: none - Genitourinary Male Genitourinary: deferred - Integumentary other (See extremities.) - Neurologic Neurologic: alert and oriented to time, place and person, motor strength and sensation are grossly intact - Musculoskeletal normal gait, normal posture - Psychiatric Psychiatric: appropriate mood/affect, intact judgment & insight Results - Labs 05/21/17 22:09 05/22/17 17:21 Abnormal lab results 05/21/17 05/21/17 05/22/17 Range/Units 22:09 22:46 00:01 Hgb 10.1 L (11.8-15.2) gm/dl Hct 31.6 L (35.5-45.6) % MCH 27 L (28-32) pg [place] % (Auto) 8.5 H (0.0-7.3) % PT (12.2-14.9) Sec. INR (0.87-1.13) Sodium 121 L (137-145) mmol/L Potassium 6.7 H* (3.6-5.0) mmol/L Chloride 83.2 L (98-107) mmol/L BUN 22 H (9-20) mg/dL Creatinine 1.8 H (0.8-1.5) mg/dL Glucose 831 H* (75-100) mg/dL POC Glucose (70-105) Hemoglobin A1c (4-6) % Phosphorus 2.20 L (2.5-4.5) mg/dL 05/22/17 05/22/17 05/22/17 Range/Units 00:01 02:20 02:20 Hgb (11.8-15.2) gm/dl Hct (35.5-45.6) % MCH (28-32) pg [place] % (Auto) (0.0-7.3) % PT (12.2-14.9) Sec. INR (0.87-1.13) Sodium 124 L (137-145) mmol/L Potassium 5.1 H D (3.6-5.0) mmol/L Chloride 86.0 L (98-107) mmol/L BUN 22 H (9-20) mg/dL Creatinine 1.7 H (0.8-1.5) mg/dL Glucose 767 H* (75-100) mg/dL POC Glucose (70-105) Hemoglobin A1c 15.7 H (4-6) % Phosphorus 1.70 L D (2.5-4.5) mg/dL 05/22/17 05/22/17 05/22/17 Range/Units 02:20 02:20 02:26 Hgb (11.8-15.2) gm/dl Hct (35.5-45.6) % MCH (28-32) pg [place] % (Auto) (0.0-7.3) % PT 11.9 L (12.2-14.9) Sec. INR 0.84 L (0.87-1.13) Sodium 130 L (137-145) mmol/L Potassium (3.6-5.0) mmol/L Chloride 90.5 L (98-107) mmol/L BUN (9-20) mg/dL Creatinine 1.7 H (0.8-1.5) mg/dL Glucose 508 H* (75-100) mg/dL POC Glucose 458 H (70-105) Hemoglobin A1c (4-6) % Phosphorus (2.5-4.5) mg/dL 05/22/17 05/22/17 05/22/17 Range/Units 03:52 05:01 05:55 Hgb (11.8-15.2) gm/dl Hct (35.5-45.6) % MCH (28-32) pg [place] % (Auto) (0.0-7.3) % PT (12.2-14.9) Sec. INR (0.87-1.13) Sodium (137-145) mmol/L Potassium (3.6-5.0) mmol/L Chloride (98-107) mmol/L BUN (9-20) mg/dL Creatinine (0.8-1.5) mg/dL Glucose (75-100) mg/dL POC Glucose 367 H 270 H 206 H (70-105) Hemoglobin A1c (4-6) % Phosphorus (2.5-4.5) mg/dL 05/22/17 05/22/17 05/22/17 Range/Units 06:46 06:48 08:16 Hgb (11.8-15.2) gm/dl Hct (35.5-45.6) % MCH (28-32) pg [place] % (Auto) (0.0-7.3) % PT (12.2-14.9) Sec. INR (0.87-1.13) Sodium (137-145) mmol/L Potassium 3.4 L (3.6-5.0) mmol/L Chloride (98-107) mmol/L BUN (9-20) mg/dL Creatinine 1.6 H (0.8-1.5) mg/dL Glucose 166 H (75-100) mg/dL POC Glucose 179 H 120 H (70-105) Hemoglobin A1c (4-6) % Phosphorus (2.5-4.5) mg/dL 05/22/17 05/22/17 Range/Units 08:43 09:32 Hgb (11.8-15.2) gm/dl Hct (35.5-45.6) % MCH (28-32) pg [place] % (Auto) (0.0-7.3) % PT (12.2-14.9) Sec. INR (0.87-1.13) Sodium (137-145) mmol/L Potassium (3.6-5.0) mmol/L Chloride (98-107) mmol/L BUN (9-20) mg/dL Creatinine 1.6 H (0.8-1.5) mg/dL Glucose 125 H (75-100) mg/dL POC Glucose 121 H (70-105) Hemoglobin A1c (4-6) % Phosphorus (2.5-4.5) mg/dL Diabetes panel 05/21/17 05/22/17 05/22/17 Range/Units 22:46 00:01 02:20 Sodium 121 L 124 L (137-145) mmol/L Potassium 6.7 H* 5.1 H D (3.6-5.0) mmol/L Chloride 83.2 L 86.0 L (98-107) mmol/L Carbon Dioxide 26 22 (22-30) mmol/L BUN 22 H 22 H (9-20) mg/dL Creatinine 1.8 H 1.7 H (0.8-1.5) mg/dL Glucose 831 H* 767 H* (75-100) mg/dL Hemoglobin A1c 15.7 H (4-6) % Calcium 8.7 8.9 (8.4-10.2) mg/dL AST 13 (5-40) units/L ALT 11 (7-56) units/L Alkaline Phosphatase 124 (35-129) units/L Total Protein 7.4 (6.3-8.2) g/dL Albumin 3.9 (3.9-5) g/dL 05/22/17 05/22/17 05/22/17 Range/Units 02:20 06:48 08:43 Sodium 130 L 141 D 141 (137-145) mmol/L Potassium 4.0 D 3.4 L 3.6 (3.6-5.0) mmol/L Chloride 90.5 L 101.0 100.8 (98-107) mmol/L Carbon Dioxide 23 25 25 (22-30) mmol/L BUN 20 19 18 (9-20) mg/dL Creatinine 1.7 H 1.6 H 1.6 H (0.8-1.5) mg/dL Glucose 508 H* 166 H 125 H (75-100) mg/dL Hemoglobin A1c (4-6) % Calcium 8.9 9.0 9.0 (8.4-10.2) mg/dL AST (5-40) units/L ALT (7-56) units/L Alkaline Phosphatase (35-129) units/L Total Protein (6.3-8.2) g/dL Albumin (3.9-5) g/dL Thyroid panel 05/21/17 Range/Units 22:46 TSH 1.420 (0.270-4.200) mlU/mL Calcium panel 05/21/17 05/22/17 05/22/17 Range/Units 22:46 00:01 00:01 Calcium 8.7 8.9 (8.4-10.2) mg/dL Phosphorus 2.20 L (2.5-4.5) mg/dL Albumin 3.9 (3.9-5) g/dL 05/22/17 05/22/17 05/22/17 Range/Units 02:20 02:20 06:48 Calcium 8.9 9.0 (8.4-10.2) mg/dL Phosphorus 1.70 L D (2.5-4.5) mg/dL Albumin (3.9-5) g/dL 05/22/17 Range/Units 08:43 Calcium 9.0 (8.4-10.2) mg/dL Phosphorus (2.5-4.5) mg/dL Albumin (3.9-5) g/dL Pituitary panel 05/21/17 05/21/17 05/22/17 Range/Units 22:46 22:46 00:01 Sodium 121 L 124 L (137-145) mmol/L Potassium 6.7 H* 5.1 H D (3.6-5.0) mmol/L Chloride 83.2 L 86.0 L (98-107) mmol/L Carbon Dioxide 26 22 (22-30) mmol/L BUN 22 H 22 H (9-20) mg/dL Creatinine 1.8 H 1.7 H (0.8-1.5) mg/dL Glucose 831 H* 767 H* (75-100) mg/dL Calcium 8.7 8.9 (8.4-10.2) mg/dL TSH 1.420 (0.270-4.200) mlU/mL 05/22/17 05/22/17 05/22/17 Range/Units 02:20 06:48 08:43 Sodium 130 L 141 D 141 (137-145) mmol/L Potassium 4.0 D 3.4 L 3.6 (3.6-5.0) mmol/L Chloride 90.5 L 101.0 100.8 (98-107) mmol/L Carbon Dioxide 23 25 25 (22-30) mmol/L BUN 20 19 18 (9-20) mg/dL Creatinine 1.7 H 1.6 H 1.6 H (0.8-1.5) mg/dL Glucose 508 H* 166 H 125 H (75-100) mg/dL Calcium 8.9 9.0 9.0 (8.4-10.2) mg/dL TSH (0.270-4.200) mlU/mL Adrenal panel 05/21/17 05/22/17 05/22/17 Range/Units 22:46 00:01 02:20 Sodium 121 L 124 L 130 L (137-145) mmol/L Potassium 6.7 H* 5.1 H D 4.0 D (3.6-5.0) mmol/L Chloride 83.2 L 86.0 L 90.5 L (98-107) mmol/L Carbon Dioxide 26 22 23 (22-30) mmol/L BUN 22 H 22 H 20 (9-20) mg/dL Creatinine 1.8 H 1.7 H 1.7 H (0.8-1.5) mg/dL Glucose 831 H* 767 H* 508 H* (75-100) mg/dL Calcium 8.7 8.9 8.9 (8.4-10.2) mg/dL Total Bilirubin 0.20 (0.1-1.2) mg/dL AST 13 (5-40) units/L ALT 11 (7-56) units/L Alkaline Phosphatase 124 (35-129) units/L Total Protein 7.4 (6.3-8.2) g/dL Albumin 3.9 (3.9-5) g/dL 05/22/17 05/22/17 Range/Units 06:48 08:43 Sodium 141 D 141 (137-145) mmol/L Potassium 3.4 L 3.6 (3.6-5.0) mmol/L Chloride 101.0 100.8 (98-107) mmol/L Carbon Dioxide 25 25 (22-30) mmol/L BUN 19 18 (9-20) mg/dL Creatinine 1.6 H 1.6 H (0.8-1.5) mg/dL Glucose 166 H 125 H (75-100) mg/dL Calcium 9.0 9.0 (8.4-10.2) mg/dL Total Bilirubin (0.1-1.2) mg/dL AST (5-40) units/L ALT (7-56) units/L Alkaline Phosphatase (35-129) units/L Total Protein (6.3-8.2) g/dL Albumin (3.9-5) g/dL - Imaging Additional studies: Plain x-ray of left foot is unremarkable. MRI of left foot today reveals no evidence of osteomyelitis or abscess. Assessment and Plan - Patient Problems (1) Foot ulcer, left Current Visit: Yes Status: Acute Plan to address problem: 1) Wound care nurse consult 2) Arterial dopplers, BLE 3) Strict DM control 4) IV antibiotics 5) F/u in [facility]
[2017-05-22] MEDS ORDERED: VANCOMYCIN 1,750 MG in NACL 0.9% 500 ML 500 ML IV SCH (14:00)
[2017-05-22] MEDS: K-PHOS NEUTRAL PO ONE ×2 (14:15→18:22)
[2017-05-22 16:34] LABS: Chol/HDL Ratio 5.16 %
--- NOTE | 2017-05-22 17:12 | Magnetic Resonance Report ---
FINAL REPORT PROCEDURE: MRI left foot and ankle without contrast. TECHNIQUE: Magnetic resonance imaging of the LEFT l foot and ankle was performed using standard pulse sequences. HISTORY: Osteomyelitis. COMPARISON: No prior studies are available for comparison. FINDINGS: The patient was unable to hold still. Several of the pulse sequences have significant motion artifact. There has been a previous amputation of the 4th and 5th toes along with the 4th and 5th metatarsal heads. The remaining bones appear intact. There is normal signal intensity from the bone marrow. There are no signs of osteomyelitis. The surrounding soft tissues are unremarkable. There are no fluid collections. IMPRESSION: No evidence of osteomyelitis. Previous amputations of the 4th and 5th toes as described.
[2017-05-22 17:49] LABS: Calcium 8.8 mg/dL (8.4-10.2)
--- NOTE | 2017-05-22 17:59 | Consultation ---
History of Present Illness - Reason for Consult Consult date: 05/22/17 left foot diabetic ulcer / osteomyelitis Requesting physician: ALFREDITO SILVEIRA - History of Present Illness 57 years old male with history of diabetes mellitus, medication noncompliance, diabetic foot ulcer status post amputation of the the left 4th and 5th toes, hypertension, congestive heart failure; admitted on due to AMS/confusion/ dysarthria. Per his daughter the patient has right facial droop with right arm weakness that resolved. Denied loss of consciousness, seizure activity, chest pain, fever. Patient stop using his insulin since October 2016. In the ED, temp 97.8, HR 81, BP 228/117, WBC 5.8, glucose 831, UA neg, UDS neg. Creat 1.8. CT head neg. CXR neg. MRI left foot showed no osteomyelitis no abscess. Microbiology: Wound cultures: 05/21 Gram stain GPC in chains Current Antimicrobials: vanco Previous Antimicrobials: Past History Past Medical History: diabetes, heart failure, hypertension Past Surgical History: Other ( left foot surgery) Social history: full code. denies: smoking, alcohol abuse, prescription drug abuse, IV drug use Family history: CAD (runs in the family), diabetes (runs in the family) Medications and Allergies Allergies Allergy/AdvReac Type Severity Reaction Status Date / Time No Known Allergies Allergy Verified 05/21/17 23:40 Active Meds: Active Medications Acetaminophen (Tylenol) 650 mg PO Q4H PRN PRN Reason: Pain MILD(1-3)/Fever >100.5/VILLAFUERTE Amlodipine Besylate (Norvasc) 10 mg PO QDAY [facility] Aspirin (Aspirin) 300 mg [place] QDAY [facility] Last Admin: 05/22/17 09:31 Dose: 300 mg Bisacodyl (Dulcolax) 10 mg [place] QDAY PRN PRN Reason: Constipation Dextrose (D50w (25gm) Syringe) 0 ml IV PRN PRN PRN Reason: Hypoglycemia Famotidine (Pepcid) 20 mg IV BID [facility] Last Admin: 05/22/17 09:31 Dose: 20 mg Heparin Sodium (Porcine) (Heparin) 5,000 unit SUB-Q Q12HR [facility] Last Admin: 05/22/17 09:31 Dose: 5,000 unit Nicardipine HCl 50 mg/ Sodium (Chloride) 250 mls @ 25 mls/hr IV TITR [facility]; Protocol Last Titration: 05/22/17 05:00 Dose: 0 mg/hr, 0 mls/hr Vancomycin HCl 1,750 mg/ (Sodium Chloride) 517.5 mls @ 333.333 mls/hr IV Q18H [facility] Sodium Chloride (Nacl 0.9% 1000 Ml) 1,000 mls @ 75 mls/hr IV DIRECT [facility] Insulin Human Isoph/Insulin Regular (Novolin 70/30) 10 unit SUB-Q BIDDIAB [facility] Last Admin: 05/22/17 11:58 Dose: 10 unit Insulin Human Regular (Novolin R) 0 units SUB-Q ACHS [facility]; Protocol Last Admin: 05/22/17 11:59 Dose: 2 units Lisinopril (Zestril) 40 mg PO QDAY [facility] Last Admin: 05/22/17 13:34 Dose: 40 mg Magnesium Hydroxide (Milk Of Magnesia) 30 ml PO Q4H PRN PRN Reason: Constipation Metoclopramide HCl (Reglan) 10 mg PO Q6H PRN PRN Reason: Nausea And Vomiting Metoprolol Tartrate (Lopressor) 25 mg PO BID [facility] Last Admin: 05/22/17 11:02 Dose: 25 mg Morphine Sulfate (Morphine) 2 mg IV Q4H PRN PRN Reason: Pain , Severe (7-10) Last Admin: 05/22/17 09:25 Dose: 2 mg Ondansetron HCl (Zofran) 4 mg IV Q8H PRN PRN Reason: N/V unrelieved by Reglan Last Admin: 05/22/17 14:23 Dose: 4 mg Promethazine HCl (Phenergan) 25 mg [place] Q6H PRN PRN Reason: Nausea And Vomiting Sodium Chloride (Sodium Chloride Flush Syringe 10 Ml) 10 ml IV BID [facility] Last Admin: 05/22/17 10:00 Dose: 10 ml Sodium Chloride (Sodium Chloride Flush Syringe 10 Ml) 10 ml IV PRN PRN PRN Reason: LINE FLUSH Vancomycin HCl (Vancomycin Pharmacy To Dose) 1 each IV PKCONSULT [facility]; Protocol Review of Systems All systems: negative (still confused.) Physical Examination - Physical Exam Narrative exam: General appearance: Alert in NAD, slurred speech Eyes: anicteric sclerae, moist conjunctivae; no lid-lag; PERRLA HENT: Atraumatic; oropharynx clear Neck: Trachea midline; supple, no thyromegaly or lymphadenopathy Lungs: CTA, with normal respiratory effort and no intercostal retractions CV: RRR, no murmurs Abdomen: Soft, non-tender; no masses or hepatosplenomegaly Extremities: left foot 5th mt ulcer with mild erythema/exudate. right 1st mt ulcer surrounding by callus Skin: Normal temperature, turgor and texture; no rash, ulcers or subcutaneous nodules Psych: somnolent Neuro: somnolent. Moving all extermities Lines: No CVL / PICC - Constitutional Vitals: Vital Signs Temp Pulse Resp BP Pulse Ox 97.9 F 80 11 L 177/84 96 05/21/17 22:38 05/22/17 15:20 05/22/17 15:20 05/22/17 15:20 05/22/17 15:20 Temperature -Last 24 Hours Temperature 97.9 F Temperature 97.9 F Results - Labs CBC & Chem 7: 05/21/17 22:09 05/22/17 17:21 Labs: Abnormal lab results 05/21/17 05/21/17 05/22/17 Range/Units 22:09 22:46 00:01 Hgb 10.1 L (11.8-15.2) gm/dl Hct 31.6 L (35.5-45.6) % MCH 27 L (28-32) pg [place] % (Auto) 8.5 H (0.0-7.3) % PT (12.2-14.9) Sec. INR (0.87-1.13) Sodium 121 L (137-145) mmol/L Potassium 6.7 H* (3.6-5.0) mmol/L Chloride 83.2 L (98-107) mmol/L BUN 22 H (9-20) mg/dL Creatinine 1.8 H (0.8-1.5) mg/dL Glucose 831 H* (75-100) mg/dL POC Glucose (70-105) Hemoglobin A1c (4-6) % Phosphorus 2.20 L (2.5-4.5) mg/dL HDL Cholesterol (40-59) mg/dL 05/22/17 05/22/17 05/22/17 Range/Units 00:01 02:20 02:20 Hgb (11.8-15.2) gm/dl Hct (35.5-45.6) % MCH (28-32) pg [place] % (Auto) (0.0-7.3) % PT (12.2-14.9) Sec. INR (0.87-1.13) Sodium 124 L (137-145) mmol/L Potassium 5.1 H D (3.6-5.0) mmol/L Chloride 86.0 L (98-107) mmol/L BUN 22 H (9-20) mg/dL Creatinine 1.7 H (0.8-1.5) mg/dL Glucose 767 H* (75-100) mg/dL POC Glucose (70-105) Hemoglobin A1c 15.7 H (4-6) % Phosphorus (2.5-4.5) mg/dL HDL Cholesterol 36 L (40-59) mg/dL 05/22/17 05/22/17 05/22/17 Range/Units 02:20 02:20 02:20 Hgb (11.8-15.2) gm/dl Hct (35.5-45.6) % MCH (28-32) pg [place] % (Auto) (0.0-7.3) % PT 11.9 L (12.2-14.9) Sec. INR 0.84 L (0.87-1.13) Sodium 130 L (137-145) mmol/L Potassium (3.6-5.0) mmol/L Chloride 90.5 L (98-107) mmol/L BUN (9-20) mg/dL Creatinine 1.7 H (0.8-1.5) mg/dL Glucose 508 H* (75-100) mg/dL POC Glucose (70-105) Hemoglobin A1c (4-6) % Phosphorus 1.70 L D (2.5-4.5) mg/dL HDL Cholesterol (40-59) mg/dL 05/22/1718 05/22/17 Range/Units 02:26 03:52 05:01 Hgb (11.8-15.2) gm/dl Hct (35.5-45.6) % MCH (28-32) pg [place] % (Auto) (0.0-7.3) % PT (12.2-14.9) Sec. INR (0.87-1.13) Sodium (137-145) mmol/L Potassium (3.6-5.0) mmol/L Chloride (98-107) mmol/L BUN (9-20) mg/dL Creatinine (0.8-1.5) mg/dL Glucose (75-100) mg/dL POC Glucose 458 H 367 H 270 H (70-105) Hemoglobin A1c (4-6) % Phosphorus (2.5-4.5) mg/dL HDL Cholesterol (40-59) mg/dL 05/22/17 05/22/17 05/22/17 Range/Units 05:55 06:46 06:48 Hgb (11.8-15.2) gm/dl Hct (35.5-45.6) % MCH (28-32) pg [place] % (Auto) (0.0-7.3) % PT (12.2-14.9) Sec. INR (0.87-1.13) Sodium (137-145) mmol/L Potassium 3.4 L (3.6-5.0) mmol/L Chloride (98-107) mmol/L BUN (9-20) mg/dL Creatinine 1.6 H (0.8-1.5) mg/dL Glucose 166 H (75-100) mg/dL POC Glucose 206 H 179 H (70-105) Hemoglobin A1c (4-6) % Phosphorus (2.5-4.5) mg/dL HDL Cholesterol (40-59) mg/dL 05/22/17 05/22/17 05/22/17 Range/Units 08:16 08:43 09:32 Hgb (11.8-15.2) gm/dl Hct (35.5-45.6) % MCH (28-32) pg [place] % (Auto) (0.0-7.3) % PT (12.2-14.9) Sec. INR (0.87-1.13) Sodium (137-145) mmol/L Potassium (3.6-5.0) mmol/L Chloride (98-107) mmol/L BUN (9-20) mg/dL Creatinine 1.6 H (0.8-1.5) mg/dL Glucose 125 H (75-100) mg/dL POC Glucose 120 H 121 H (70-105) Hemoglobin A1c (4-6) % Phosphorus (2.5-4.5) mg/dL HDL Cholesterol (40-59) mg/dL 05/22/17 05/22/17 05/22/17 Range/Units 10:17 11:13 12:00 Hgb (11.8-15.2) gm/dl Hct (35.5-45.6) % MCH (28-32) pg [place] % (Auto) (0.0-7.3) % PT (12.2-14.9) Sec. INR (0.87-1.13) Sodium (137-145) mmol/L Potassium (3.6-5.0) mmol/L Chloride (98-107) mmol/L BUN (9-20) mg/dL Creatinine (0.8-1.5) mg/dL Glucose (75-100) mg/dL POC Glucose 143 H 161 H 166 H (70-105) Hemoglobin A1c (4-6) % Phosphorus (2.5-4.5) mg/dL HDL Cholesterol (40-59) mg/dL 05/22/17 Range/Units 17:21 Hgb (11.8-15.2) gm/dl Hct (35.5-45.6) % MCH (28-32) pg [place] % (Auto) (0.0-7.3) % PT (12.2-14.9) Sec. INR (0.87-1.13) Sodium 135 L (137-145) mmol/L Potassium (3.6-5.0) mmol/L Chloride 96.3 L (98-107) mmol/L BUN (9-20) mg/dL Creatinine (0.8-1.5) mg/dL Glucose 142 H (75-100) mg/dL POC Glucose (70-105) Hemoglobin A1c (4-6) % Phosphorus (2.5-4.5) mg/dL HDL Cholesterol (40-59) mg/dL Assessment and Plan Assessment: 1) Left foot diabetic ulcer with cellulitis/abscess: -MRI showed no abscess no osteomyelitis -Wound cx pending 2) DM on DKA 3) CHIDI 4) Hyponatremia 5) Hyperkalemia 6) Acute Encephalopathy: CT head neg Plan: -follow-up wound culture -obtain C-reactive protein (CRP) -continue vancomcyin renally dosed -add unasyn -wound care -strict diabetes control Thank you for your consultation, will follow up with you. Thelma Desir MD Infectious Diseases Specialist [facility] ([facility] M [phone] O [phone]
--- NOTE | 2017-05-22 23:16 | Ultrasound Report ---
FINAL REPORT PROCEDURE: Renal ultrasound. TECHNIQUE: Real-time sonography in multiple planes of the kidneys, ureters and urinary bladder was performed with image documentation. CPT 20567 HISTORY: Renal failure. COMPARISON: No prior studies are available for comparison. FINDINGS: Image quality is limited due to the patient's body habitus. The right kidney measures 10.7 centimeters x 4.3 centimeters x 4.5 centimeters. The left kidney measures 10.4 centimeters x 4.3 centimeters x 4.0 centimeters. The echogenicity of both kidneys appears normal. There is no hydronephrosis. There are no renal masses. There are no renal calcifications. The bladder appears normal. IMPRESSION: Normal study.
[2017-05-23 00:14] LABS: Calcium 8.7 mg/dL (8.4-10.2)
[2017-05-23] MEDS: VANCOMYCIN 1,750 MG in NACL 0.9% 500 ML 500 ML IV SCH ×2 (00:35→18:25)
[2017-05-23 01:45] LABS: Calcium 8.6 mg/dL (8.4-10.2)
[2017-05-23] MEDS: UNASYN/NS 3 GM/100 ML 3 GM/100 ML BAG IV SCH ×3 (02:03→13:37)
[2017-05-23] MEDS ORDERED: UNASYN/NS 3 GM/100 ML 3 GM/100 ML BAG IV SCH (06:00)
[2017-05-23 06:34] LABS: Albumin 3.2 g/dL (3.9-5); Calcium 8.4 mg/dL (8.4-10.2)
[2017-05-23 07:13] LABS: Creatinine,Urine 144.2 mg/dL (0.1-20.0)
[2017-05-23] MEDS: HumuLIN R SUB-Q SCH ×4 (08:00→21:26)
--- NOTE | 2017-05-23 10:05 | Progress Note ---
Assessment and Plan Assessment: 1) Left foot diabetic ulcer with cellulitis/abscess: -MRI showed no abscess no osteomyelitis -Wound cx GNR and Staph aureus 2) DM on DKA 3) CHIDI 4) Hyponatremia 5) Hyperkalemia 6) Acute Encephalopathy: CT head neg Plan: -add contact isolation -follow-up wound culture -obtain C-reactive protein (CRP) -continue vancomcyin renally dosed -add unasyn -wound care -strict diabetes control -call me with final culture results I am rounding on Friday Thank you for your consultation, will follow up with you. Thelma Desir MD Infectious Diseases Specialist [facility] ([facility] M [phone] O [phone] Subjective Date of service: 05/23/17 Principal diagnosis: diabetic foot ulcer Interval history: Feels better wants to go home. No fever Microbiology: Wound cultures: 05/21 Gram stain GPC in chains Current Antimicrobials: vanco Previous Antimicrobials: Objective - Exam Narrative Exam: General appearance: Alert in NAD, slurred speech Eyes: anicteric sclerae, moist conjunctivae; no lid-lag; PERRLA HENT: Atraumatic; oropharynx clear Neck: Trachea midline; supple, no thyromegaly or lymphadenopathy Lungs: CTA, with normal respiratory effort and no intercostal retractions CV: RRR, no murmurs Abdomen: Soft, non-tender; no masses or hepatosplenomegaly Extremities: left foot 5th mt ulcer with mild erythema/exudate. right 1st mt ulcer surrounding by callus Skin: Normal temperature, turgor and texture; no rash, ulcers or subcutaneous nodules Psych: somnolent Neuro: somnolent. Moving all extermities Lines: No CVL / PICC - Constitutional Vitals: Vital Signs Temp Pulse Resp BP Pulse Ox 98.3 F 80 18 157/87 98 05/23/17 04:04 05/23/17 04:04 05/23/17 04:04 05/23/17 04:04 05/23/17 04:04 Temperature -Last 24 Hours Temperature 98.3 F Temperature 97.8 F Temperature 98.3 F - Labs CBC & Chem 7: 05/21/17 22:09 05/23/17 05:53 Labs: Abnormal lab results 05/22/17 05/22/17 05/22/17 Range/Units 02:20 09:32 10:17 Sodium (137-145) mmol/L Chloride (98-107) mmol/L Creatinine (0.8-1.5) mg/dL Glucose (75-100) mg/dL POC Glucose 121 H 143 H (70-105) Total Protein (6.3-8.2) g/dL Albumin (3.9-5) g/dL HDL Cholesterol 36 L (40-59) mg/dL Urine Creatinine (0.1-20.0) mg/dL Urine Total Protein (5-11.8) mg/dL 05/22/17 05/22/17 05/22/17 Range/Units 11:13 12:00 17:00 Sodium (137-145) mmol/L Chloride (98-107) mmol/L Creatinine (0.8-1.5) mg/dL Glucose (75-100) mg/dL POC Glucose 161 H 166 H 149 H (70-105) Total Protein (6.3-8.2) g/dL Albumin (3.9-5) g/dL HDL Cholesterol (40-59) mg/dL Urine Creatinine (0.1-20.0) mg/dL Urine Total Protein (5-11.8) mg/dL 05/22/17 05/22/17 05/22/17 Range/Units 17:21 21:55 23:37 Sodium 135 L 136 L (137-145) mmol/L Chloride 96.3 L (98-107) mmol/L Creatinine 1.8 H (0.8-1.5) mg/dL Glucose 142 H 167 H (75-100) mg/dL POC Glucose 183 H (70-105) Total Protein (6.3-8.2) g/dL Albumin (3.9-5) g/dL HDL Cholesterol (40-59) mg/dL Urine Creatinine (0.1-20.0) mg/dL Urine Total Protein (5-11.8) mg/dL 05/23/17 05/23/17 05/23/17 Range/Units 01:06 05:53 Unknown Sodium (137-145) mmol/L Chloride (98-107) mmol/L Creatinine 1.6 H 1.7 H (0.8-1.5) mg/dL Glucose 142 H 144 H (75-100) mg/dL POC Glucose (70-105) Total Protein 6.2 L (6.3-8.2) g/dL Albumin 3.2 L (3.9-5) g/dL HDL Cholesterol (40-59) mg/dL Urine Creatinine 144.2 H (0.1-20.0) mg/dL Urine Total Protein 199 H (5-11.8) mg/dL
--- NOTE | 2017-05-23 11:12 | Progress Note ---
Assessment and Plan (1) CHIDI (acute kidney injury) Current Visit: Yes Status: Acute Plan to address problem: due to rising Cr and hyperkalemia on admission, will hold lisinopril for now renal US negative for obstruction elevated protein to Cr ratio, most likely secondary to DM but will check secondary GN work up Renally dose medications Obtain daily weights Monitor I/O's Monitor renal function closely (2) Diabetic ketoacidosis Current Visit: Yes Status: Acute Plan to address problem: S/P insulin drip Now on SQ insulin (3) Hypertension Current Visit: Yes Status: Acute Plan to address problem: d/c lisinopril as above will stop Metorpolol and start Labetalol 200 mg TID cont Amlodipne (4) Hyperkalemia Current Visit: Yes Status: Acute Plan to address problem: Resolved (5) Hypophosphatemia Current Visit: Yes Status: Acute Plan to address problem: replete as needed (6) Ulcer of left foot Current Visit: Yes Status: Acute Plan to address problem: Wound dressing changes Subjective Date of service: 05/23/17 Principal diagnosis: diabetic foot ulcer Interval history: feels mildly weak but comfortable Objective - Vital Signs Vital signs: Vital Signs - 12hr 05/22/17 05/22/17 05/23/17 23:48 23:49 04:04 Temperature 97.8 F 98.3 F Pulse Rate 88 86 80 Respiratory 18 18 Rate Blood Pressure 135/85 157/87 O2 Sat by Pulse 97 98 98 Oximetry - General Appearance General appearance: well-developed, well-nourished EENT: ATNC, PERRL Neck: no JVD, no carotid bruit Respiratory: Present: Clear to Ascultation. Absent: Rales, Ronchi Cardiology: regular, S1S2 Gastrointestinal: normoactive bowel sounds, no tenderness, no distended, no guarding Integumentary: no rash, warm and dry Neurologic: no focal deficit, no asterixis, alert and oriented x3 Musculoskeletal: other (no edema in BLE) Psychiatric: mood/affect appropriate, cooperative - Lab 05/21/17 22:09 05/23/17 05:53 Most recent lab results Calcium 8.4 mg/dL (8.4-10.2) 05/23/17 05:53 Phosphorus 1.70 mg/dL (2.5-4.5) L D 05/22/17 02:20 Magnesium 2.10 mg/dL (1.7-2.3) 05/22/17 02:20 Urine Creatinine 144.2 mg/dL (0.1-20.0) H 05/23/17 Unknown Urine Sodium 54 mmol/L 05/23/17 Unknown Urine Total Protein 199 mg/dL (5-11.8) H 05/23/17 Unknown
[2017-05-23] MEDS: HEPARIN SUB-Q SCH ×2 (11:37→21:27)
[2017-05-23] MEDS: NORVASC PO SCH (11:38)
[2017-05-23] MEDS: ASPIRIN PR SCH (11:39)
[2017-05-23] MEDS: ZESTRIL PO SCH (11:39)
[2017-05-23] MEDS: PEPCID IV SCH ×2 (11:40→21:27)
[2017-05-23] MEDS: SODIUM CHLORIDE FLUSH SYRINGE 10 ML IV SCH ×2 (11:41→21:27)
[2017-05-23] MEDS: NORMODYNE PO SCH ×2 (13:33→21:27)
[2017-05-23] MEDS: MORPHINE IV PRN (13:34)
--- NOTE | 2017-05-23 19:04 | Progress Note ---
Assessment and Plan Patient alert, awake. No complaint of chest pain, shortness of breath or cough.Resting on room air O2 saturation 91%.Recommend O2 2 litres via nasal canula. Continue DVT prophylaxis. - Patient Problems (1) Diabetic ketoacidosis Current Visit: Yes Status: Acute Plan to address problem: Blood sugur 144 HCO3 24 Anion gap closed. Obtaining blood gases. (2) Foot ulcer, left Current Visit: Yes Status: Acute Plan to address problem: Patient is on unasyn. (3) CHIDI (acute kidney injury) Current Visit: Yes Status: Acute Plan to address problem: Management as per primary care and nephrology. Subjective Date of service: 05/23/17 Principal diagnosis: diabetic foot ulcer Interval history: Patient alert, awake. No complaint of chest pain, shortness of breath or cough.Resting on room air O2 saturation 91%.Recommend O2 2 litres via nasal canula. Continue DVT prophylaxis. Objective Vital Signs - 12hr 05/23/17 05/23/17 05/23/17 09:00 10:00 11:38 Temperature Pulse Rate 80 80 Respiratory 18 Rate Blood Pressure O2 Sat by Pulse 98 Oximetry 05/23/17 05/23/17 05/23/17 11:39 12:21 13:33 Temperature 98.0 F Pulse Rate 80 87 87 Respiratory 20 Rate Blood Pressure 173/89 173/89 O2 Sat by Pulse 97 Oximetry 05/23/17 16:25 Temperature 98.9 F Pulse Rate 78 Respiratory 20 Rate Blood Pressure 98/44 O2 Sat by Pulse 91 Oximetry Constitutional: no acute distress, alert Eyes: non-icteric ENT: oropharynx moist Ascultation: Bilateral: clear Cardiovascular: regular rate and rhythm Gastrointestinal: normoactive bowel sounds, soft, non-tender Integumentary: other (Left foot ulcer.) Extremities: other (Left foot ulcer.) Neurologic: normal mental status, non-focal exam, pupils equal and round, CN II- XII normal Psychiatric: depressed CBC and BMP: 05/21/17 22:09 05/23/17 05:53 ABG, PT/INR, D-dimer: PT/INR, D-dimer PT 11.9 Sec. (12.2-14.9) L 05/22/17 02:20 INR 0.84 (0.87-1.13) L 05/22/17 02:20 Abnormal lab findings: Abnormal Labs 05/21/17 05/21/17 05/22/17 22:09 22:46 00:01 Hgb 10.1 L Hct 31.6 L MCH 27 L [place] % (Auto) 8.5 H PT INR Sodium 121 L Potassium 6.7 H* Chloride 83.2 L BUN 22 H Creatinine 1.8 H Glucose 831 H* POC Glucose Hemoglobin A1c Phosphorus 2.20 L Total Protein Albumin HDL Cholesterol Urine Creatinine Urine Total Protein 05/22/17 05/22/17 05/22/17 00:01 02:20 02:20 Hgb Hct MCH [place] % (Auto) PT INR Sodium 124 L Potassium 5.1 H D Chloride 86.0 L BUN 22 H Creatinine 1.7 H Glucose 767 H* POC Glucose Hemoglobin A1c 15.7 H Phosphorus Total Protein Albumin HDL Cholesterol 36 L Urine Creatinine Urine Total Protein 05/22/17 05/22/17 05/22/17 02:20 02:20 02:20 Hgb Hct MCH [place] % (Auto) PT 11.9 L INR 0.84 L Sodium 130 L Potassium Chloride 90.5 L BUN Creatinine 1.7 H Glucose 508 H* POC Glucose Hemoglobin A1c Phosphorus 1.70 L D Total Protein Albumin HDL Cholesterol Urine Creatinine Urine Total Protein 05/22/17 05/22/17 05/22/17 02:26 03:52 05:01 Hgb Hct MCH [place] % (Auto) PT INR Sodium Potassium Chloride BUN Creatinine Glucose POC Glucose 458 H 367 H 270 H Hemoglobin A1c Phosphorus Total Protein Albumin HDL Cholesterol Urine Creatinine Urine Total Protein 05/22/17 05/22/17 05/22/17 05:55 06:46 06:48 Hgb Hct MCH [place] % (Auto) PT INR Sodium Potassium 3.4 L Chloride BUN Creatinine 1.6 H Glucose 166 H POC Glucose 206 H 179 H Hemoglobin A1c Phosphorus Total Protein Albumin HDL Cholesterol Urine Creatinine Urine Total Protein 05/22/17 05/22/17 05/22/17 08:16 08:43 09:32 Hgb Hct MCH [place] % (Auto) PT INR Sodium Potassium Chloride BUN Creatinine 1.6 H Glucose 125 H POC Glucose 120 H 121 H Hemoglobin A1c Phosphorus Total Protein Albumin HDL Cholesterol Urine Creatinine Urine Total Protein 05/22/17 05/22/17 05/22/17 10:17 11:13 12:00 Hgb Hct MCH [place] % (Auto) PT INR Sodium Potassium Chloride BUN Creatinine Glucose POC Glucose 143 H 161 H 166 H Hemoglobin A1c Phosphorus Total Protein Albumin HDL Cholesterol Urine Creatinine Urine Total Protein 05/22/17 05/22/17 05/22/17 17:00 17:21 21:55 Hgb Hct MCH [place] % (Auto) PT INR Sodium 135 L Potassium Chloride 96.3 L BUN Creatinine Glucose 142 H POC Glucose 149 H 183 H Hemoglobin A1c Phosphorus Total Protein Albumin HDL Cholesterol Urine Creatinine Urine Total Protein 05/22/17 05/23/17 05/23/17 23:37 01:06 05:53 Hgb Hct MCH [place] % (Auto) PT INR Sodium 136 L Potassium Chloride BUN Creatinine 1.8 H 1.6 H 1.7 H Glucose 167 H 142 H 144 H POC Glucose Hemoglobin A1c Phosphorus Total Protein 6.2 L Albumin 3.2 L HDL Cholesterol Urine Creatinine Urine Total Protein 05/23/17 Unknown Hgb Hct MCH [place] % (Auto) PT INR Sodium Potassium Chloride BUN Creatinine Glucose POC Glucose Hemoglobin A1c Phosphorus Total Protein Albumin HDL Cholesterol Urine Creatinine 144.2 H Urine Total Protein 199 H Chest x-ray: report reviewed (No acute cardiopulmonary process.), image reviewed
--- NOTE | 2017-05-23 20:50 | Progress Note ---
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) - Placed on insulin drip following admission - Now off insulin drip, continue to adjust subcutaneous insulin to maintain good Glycemic control - Patient's A1c 15.7 // CHIDI - Likely from severe dehydration with the vasomotor nephropathy vs tubular necrosis - Continue IV fluid, renal dose medications - We'll follow renal ultrasound results - Neurologiy following the patient // Hyponatremia - Likely from hyperglycemia - Continue IV fluid // Hyperkalemia - Resolved with improving blood glucose level // Acute Encephalopathy: CT head neg - Patient presented with slurred speech and confusion - Dose most likely related to hyperglycemic nonketotic comma - Patient is alert awake and oriented 3 now -Exhibits No Focal Neurological Deficits //Left foot diabetic ulcer with cellulitis/abscess: -MRI showed no abscess no osteomyelitis -Wound cx GNR and Staph aureus - Continue antibiotics per ID recommendations ( on vancomycin and Unasyn) // Malignant Hypertension - His blood pressure was 228/117 on admission, placed order for Cardene drip following admission -Now blood pressure better controlled with amlodipine and labetalol - Continue Hydralazine IV as needed // History of CHF - We'll obtain 2-D echo Brief history: 57 year old -[place]inese male with past medical history significant for type 2 diabetes mellitus, medication noncompliance, diabetic foot ulcer status post amputation of the the left toe, hypertension, congestive heart failure presented to the emergency department for complaints of confusion. In the emergency department glucose level was in the 831s, he has CHIDI with hyperkalemia K of 6.7, Na 121, blood pressure was in the 228/117s. Patient started on insulin drip, obtained CT head. Patient admitted to ICU for further management. Patient moved from [place] a year ago and does not have a PCP. Radiological test: Head CT - no acute intracranial process Chest x-ray - no infiltrates Left lower extremity x-ray/MRI - soft tissue swelling no abscess or osteomyelitis seen Arterial Doppler of lower extremity Hospitalist Physical exam: GENERAL: well-developed and well-nourished male lying on bed appeared to be in no discomfort. HEENT: Normocephalic. Atraumatic. No conjunctival congestion or icterus. Patient has moist mucous membranes. NECK: Supple. Trachea midline. CHEST/LUNGS: Clear to auscultated bilaterally, breathing nonlabored. No wheezes crackles or rhonchi. HEART/CARDIOVASCULAR: Regular in rate and rhythm. S1 and S2 positive. ABDOMEN: Abdomen is soft, nontender. Patient has normal bowel sounds. SKIN: There is no rash. Warm and dry. NEURO: No focal motor deficit. Follows command. MUSCULOSKELETAL: No joint effusion or tenderness. EXTRIMITY: No edema, no cyanosis or clubbing. Left foot with wound dressing PSYCH: Cooperative. Subjective Date of service: 05/23/17 Principal diagnosis: diabetic foot ulcer Interval history: Patient seen and examined. Medical records and medication list reviewed. No acute event overnight noted by the RN. Patient denies any chest pain or difficulty breathing. Patient is tolerating diet. Discussed plan of care at bedside with patient. Renal function slightly worse today, having good urine output Objective - Constitutional Vitals: Vital Signs - 12hr 05/23/17 05/23/17 05/23/17 09:00 10:00 11:38 Temperature Pulse Rate 80 80 Respiratory 18 Rate Blood Pressure O2 Sat by Pulse 98 Oximetry 05/23/17 05/23/17 05/23/17 11:39 12:21 13:33 Temperature 98.0 F Pulse Rate 80 87 87 Respiratory 20 Rate Blood Pressure 173/89 173/89 O2 Sat by Pulse 97 Oximetry 05/23/17 16:25 Temperature 98.9 F Pulse Rate 78 Respiratory 20 Rate Blood Pressure 98/44 O2 Sat by Pulse 91 Oximetry - Labs CBC & Chem 7: 05/24/17 06:38 05/24/17 06:38 Labs: Abnormal lab results 05/22/17 05/22/17 05/23/17 Range/Units 21:55 23:37 01:06 Sodium 136 L (137-145) mmol/L Creatinine 1.8 H 1.6 H (0.8-1.5) mg/dL Glucose 167 H 142 H (75-100) mg/dL POC Glucose 183 H (70-105) Total Protein (6.3-8.2) g/dL Albumin (3.9-5) g/dL Urine Creatinine (0.1-20.0) mg/dL Urine Total Protein (5-11.8) mg/dL 05/23/17 05/23/17 05/23/17 Range/Units 05:53 11:30 16:38 Sodium (137-145) mmol/L Creatinine 1.7 H (0.8-1.5) mg/dL Glucose 144 H (75-100) mg/dL POC Glucose 315 H 326 H (70-105) Total Protein 6.2 L (6.3-8.2) g/dL Albumin 3.2 L (3.9-5) g/dL Urine Creatinine (0.1-20.0) mg/dL Urine Total Protein (5-11.8) mg/dL 05/23/17 Range/Units Unknown Sodium (137-145) mmol/L Creatinine (0.8-1.5) mg/dL Glucose (75-100) mg/dL POC Glucose (70-105) Total Protein (6.3-8.2) g/dL Albumin (3.9-5) g/dL Urine Creatinine 144.2 H (0.1-20.0) mg/dL Urine Total Protein 199 H (5-11.8) mg/dL
[2017-05-24] MEDS: MORPHINE IV PRN ×2 (04:18→15:49)
[2017-05-24] MEDS: UNASYN/NS 3 GM/100 ML 3 GM/100 ML BAG IV SCH ×4 (04:19→18:00)
[2017-05-24 07:37] LABS: Basophils # (Auto) 0.1 K/mm3 (0.0-0.1); Basophils % (Auto) 1.1 % (0.0-1.8); Eosinophils # (Auto) 0.3 K/mm3 (0.0-0.4); Eosinophils % (Auto) 4.5 % (0.0-4.3); Hematocrit 26.4 % (35.5-45.6); Hemoglobin 8.7 gm/dl (11.8-15.2); Lymphocytes # (Auto) 2.4 K/mm3 (1.2-5.4); Lymphocytes % (Auto) 38.6 % (13.4-35.0); Mean Corpuscular HGB Conc 33 % (32-34); Mean Corpuscular Hemoglobin 27 pg (28-32); Mean Corpuscular Volume 82 fl (84-94); Monocytes # (Auto) 0.7 K/mm3 (0.0-0.8); Monocytes % (Auto) 11.2 % (0.0-7.3); Platelet Count 243 K/mm3 (140-440); Red Blood Count 3.24 M/mm3 (3.65-5.03); Red Cell Distribution Width 14.3 % (13.2-15.2)
[2017-05-24 07:58] LABS: Calcium 7.8 mg/dL (8.4-10.2)
--- NOTE | 2017-05-24 09:24 | Progress Note ---
Assessment and Plan (1) CHIDI (acute kidney injury) Current Visit: Yes Status: Acute Plan to address problem: Cr is worsening since yesterday, possibly due to ACEI vs AIN form IV abx. will check urine eos renal US negative for obstruction elevated protein to Cr ratio, secondary GN work up is pending Renally dose medications Obtain daily weights Monitor I/O's Monitor renal function closely (2) Diabetic ketoacidosis Current Visit: Yes Status: Acute Plan to address problem: S/P insulin drip Now on SQ insulin (3) Hypertension Current Visit: Yes Status: Acute Plan to address problem: improved, cont labetalol and amlodipine (4) Hyperkalemia Current Visit: Yes Status: Acute Plan to address problem: Resolved (5) Hypophosphatemia Current Visit: Yes Status: Acute Plan to address problem: replete as needed (6) Ulcer of left foot Current Visit: Yes Status: Acute Plan to address problem: Wound dressing changes Subjective Date of service: 05/24/17 Principal diagnosis: diabetic foot ulcer Interval history: denies SHOb and chest pain. comfortable Objective - Vital Signs Vital signs: Vital Signs - 12hr 05/23/17 05/24/17 05/24/17 23:58 03:56 08:19 Temperature 98.0 F 98.4 F 98.9 F Pulse Rate 83 85 86 Respiratory 18 18 18 Rate Blood Pressure 132/53 129/61 132/70 O2 Sat by Pulse 96 95 97 Oximetry 05/24/17 08:20 Temperature Pulse Rate 86 Respiratory Rate Blood Pressure O2 Sat by Pulse 97 Oximetry - General Appearance General appearance: well-developed, well-nourished, appears stated age EENT: ATNC, PERRL, mucous membranes moist Neck: no JVD, no carotid bruit Respiratory: Present: Clear to Ascultation. Absent: Rales, Ronchi Cardiology: regular, S1S2 Gastrointestinal: normoactive bowel sounds, no tenderness, no distended Integumentary: no rash, warm and dry Neurologic: no focal deficit, no asterixis, alert and oriented x3 Musculoskeletal: other (trace pitting edema in BLE) Psychiatric: mood/affect appropriate, cooperative - Lab 05/24/17 06:38 05/24/17 06:38 Most recent lab results Calcium 7.8 mg/dL (8.4-10.2) L 05/24/17 06:38 Phosphorus 3.60 mg/dL (2.5-4.5) 05/24/17 06:38 Magnesium 2.10 mg/dL (1.7-2.3) 05/22/17 02:20 Urine Creatinine 144.2 mg/dL (0.1-20.0) H 05/23/17 Unknown Urine Sodium 54 mmol/L 05/23/17 Unknown Urine Total Protein 199 mg/dL (5-11.8) H 05/23/17 Unknown
[2017-05-24] MEDS: NORVASC PO SCH (11:24)
[2017-05-24] MEDS: PEPCID PO SCH ×2 (11:24→22:03)
[2017-05-24] MEDS: HEPARIN SUB-Q SCH ×2 (11:25→22:06)
[2017-05-24] MEDS: HumuLIN R SUB-Q SCH ×4 (11:30→22:00)
[2017-05-24] MEDS: VANCOMYCIN 1,750 MG in NACL 0.9% 500 ML 500 ML IV SCH (11:33)
[2017-05-24] MEDS: ASPIRIN PR SCH (11:34)
[2017-05-24] MEDS: SODIUM CHLORIDE FLUSH SYRINGE 10 ML IV SCH ×2 (11:34→23:54)
[2017-05-24] MEDS: NORMODYNE PO SCH ×4 (11:46→22:03)
--- NOTE | 2017-05-24 12:10 | Progress Note ---
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) - Placed on insulin drip following admission - Now off insulin drip, continue to adjust subcutaneous insulin to maintain good Glycemic control - Patient's A1c 15.7 // Hyponatremia - Likely from hyperglycemia - Continue IV fluid // Hyperkalemia - Resolved with improving blood glucose level // Acute Encephalopathy: CT head neg - Patient presented with slurred speech and confusion - Symptom most likely related to hyperglycemic nonketotic comma - Patient is alert awake and oriented 3 now - Exhibits No Focal Neurological Deficits //Left foot diabetic ulcer with cellulitis/abscess: -MRI showed no abscess no osteomyelitis -Wound cx GNR and Staph aureus - Continue antibiotics per ID recommendations ( on vancomycin and Unasyn) // Malignant Hypertension - His blood pressure was 228/117 on admission, placed order for Cardene drip following admission -Now blood pressure better controlled with amlodipine and labetalol - Continue Hydralazine IV as needed // History of CHF - Ef 40-45%, compensated Brief history: 57 year old -[place] male with past medical history significant for type 2 diabetes mellitus, medication noncompliance, diabetic foot ulcer status post amputation of the the left toe, hypertension, congestive heart failure presented to the emergency department for complaints of confusion. In the emergency department glucose level was in the 831s, he has CHIDI with hyperkalemia K of 6.7, Na 121, blood pressure was in the 228/117s. Patient started on insulin drip, obtained CT head. Patient admitted to ICU for further management. Patient moved from [place] a year ago and does not have a PCP. Radiological test: Head CT - no acute intracranial process Chest x-ray - no infiltrates Left lower extremity x-ray/MRI - soft tissue swelling no abscess or osteomyelitis seen Arterial Doppler of lower extremity Hospitalist Physical exam: GENERAL: well-developed and well-nourished male lying on bed appeared to be in no discomfort. HEENT: Normocephalic. Atraumatic. No conjunctival congestion or icterus. Patient has moist mucous membranes. NECK: Supple. Trachea midline. CHEST/LUNGS: Clear to auscultated bilaterally, breathing nonlabored. No wheezes crackles or rhonchi. HEART/CARDIOVASCULAR: Regular in rate and rhythm. S1 and S2 positive. ABDOMEN: Abdomen is soft, nontender. Patient has normal bowel sounds. SKIN: There is no rash. Warm and dry. NEURO: No focal motor deficit. Follows command. MUSCULOSKELETAL: No joint effusion or tenderness. EXTRIMITY: No edema, no cyanosis or clubbing. Left foot with wound dressing PSYCH: Cooperative. Subjective Date of service: 05/24/17 Principal diagnosis: diabetic foot ulcer Interval history: Patient seen and examined. Medical records and medication list reviewed. No acute event overnight noted by the RN. Patient denies any chest pain or difficulty breathing. Patient is tolerating diet. Discussed plan of care at bedside with patient. Renal function slightly worse today, having good urine output Objective - Constitutional Vitals: Vital Signs - 12hr 05/24/17 05/24/17 05/24/17 03:56 08:19 08:20 Temperature 98.4 F 98.9 F Pulse Rate 85 86 86 Respiratory 18 18 Rate Blood Pressure 129/61 132/70 O2 Sat by Pulse 95 97 97 Oximetry - Labs CBC & Chem 7: 05/24/17 06:38 05/24/17 06:38 Labs: Abnormal lab results 05/23/17 05/23/17 05/23/17 Range/Units 11:30 16:38 21:29 RBC (3.65-5.03) M/mm3 Hgb (11.8-15.2) gm/dl Hct (35.5-45.6) % MCV (84-94) fl MCH (28-32) pg Lymph % (Auto) (13.4-35.0) % [place] % (Auto) (0.0-7.3) % Eos % (Auto) (0.0-4.3) % POC ABG pO2 (80-105) Creatinine (0.8-1.5) mg/dL Glucose (75-100) mg/dL POC Glucose 315 H 326 H 301 H (70-105) Calcium (8.4-10.2) mg/dL Vancomycin Trough (5.0-20.0) ug/mL 05/24/17 05/24/17 05/24/17 Range/Units 06:38 06:38 10:18 RBC 3.24 L (3.65-5.03) M/mm3 Hgb 8.7 L (11.8-15.2) gm/dl Hct 26.4 L (35.5-45.6) % MCV 82 L (84-94) fl MCH 27 L (28-32) pg Lymph % (Auto) 38.6 H (13.4-35.0) % [place] % (Auto) 11.2 H (0.0-7.3) % Eos % (Auto) 4.5 H (0.0-4.3) % POC ABG pO2 (80-105) Creatinine 1.9 H (0.8-1.5) mg/dL Glucose 175 H (75-100) mg/dL POC Glucose (70-105) Calcium 7.8 L (8.4-10.2) mg/dL Vancomycin Trough 24.9 H (5.0-20.0) ug/mL 05/24/17 Range/Units 11:38 RBC (3.65-5.03) M/mm3 Hgb (11.8-15.2) gm/dl Hct (35.5-45.6) % MCV (84-94) fl MCH (28-32) pg Lymph % (Auto) (13.4-35.0) % [place] % (Auto) (0.0-7.3) % Eos % (Auto) (0.0-4.3) % POC ABG pO2 69 L (80-105) Creatinine (0.8-1.5) mg/dL Glucose (75-100) mg/dL POC Glucose (70-105) Calcium (8.4-10.2) mg/dL Vancomycin Trough (5.0-20.0) ug/mL
--- NOTE | 2017-05-24 12:44 | Vascular Lab Report ---
LOWER EXTREMITY ARTERIAL DUPLEX: REASON FOR EXAM: Left foot ulcer. COMMENTS ON THE RIGHT: A limited study was done of the right lower extremity. Triphasic waveforms and normal flow velocities were noted at the anterior tibial artery and the posterior tibial artery near the ankle. The dorsalis pedis artery is monophasic flow of the foot. COMMENTS ON THE LEFT: Triphasic waveforms are seen proximally. Triphasic waveforms are seen distally. No significant velocity gradients are identified. No significant plaque is identified. Findings are consistent with normal perfusion. Findings are consistent with the ability to heal distal wounds. IMPRESSION: RIGHT: Essentially normal arterial flow. Also noted is monophasic flow in the dorsalis pedis artery. LEFT:Essentially normal arterial flow.
[2017-05-25] MEDS: UNASYN/NS 3 GM/100 ML 3 GM/100 ML BAG IV SCH ×5 (00:13→23:32)
[2017-05-25] MEDS: VANCOMYCIN 1,750 MG in NACL 0.9% 500 ML 500 ML IV SCH (04:00)
[2017-05-25] MEDS ORDERED: VANCOMYCIN/NS 1 GM/250 ML 1 GM/250 ML BAG IV SCH (08:00)
[2017-05-25] MEDS: NORMODYNE PO SCH ×3 (08:03→20:30)
[2017-05-25 08:11] LABS: Basophils # (Auto) 0.1 K/mm3 (0.0-0.1); Basophils % (Auto) 0.9 % (0.0-1.8); Eosinophils # (Auto) 0.4 K/mm3 (0.0-0.4); Eosinophils % (Auto) 6.1 % (0.0-4.3); Hematocrit 27.6 % (35.5-45.6); Hemoglobin 9.1 gm/dl (11.8-15.2); Lymphocytes # (Auto) 2.1 K/mm3 (1.2-5.4); Lymphocytes % (Auto) 35.7 % (13.4-35.0); Mean Corpuscular HGB Conc 33 % (32-34); Mean Corpuscular Hemoglobin 27 pg (28-32); Mean Corpuscular Volume 81 fl (84-94); Monocytes # (Auto) 0.7 K/mm3 (0.0-0.8); Monocytes % (Auto) 12.7 % (0.0-7.3); Platelet Count 234 K/mm3 (140-440); Red Blood Count 3.39 M/mm3 (3.65-5.03); Red Cell Distribution Width 14.3 % (13.2-15.2)
[2017-05-25] MEDS: HumuLIN R SUB-Q SCH ×4 (08:30→23:34)
--- NOTE | 2017-05-25 09:26 | Progress Note ---
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) - Placed on insulin drip following admission - Now off insulin drip, continue to adjust subcutaneous insulin to maintain good Glycemic control - Patient's A1c 15.7 // Hyponatremia - Likely from hyperglycemia - Continue IV fluid // Hyperkalemia - Resolved with improving blood glucose level // Acute Encephalopathy: CT head neg - Patient presented with slurred speech and confusion - Symptom most likely related to hyperglycemic nonketotic comma - Patient is alert awake and oriented 3 now - Exhibits No Focal Neurological Deficits //Left foot diabetic ulcer with cellulitis/abscess: -MRI showed no abscess no osteomyelitis -Wound cx GNR and Staph aureus - Continue antibiotics per ID recommendations ( on vancomycin and Unasyn) // Malignant Hypertension - His blood pressure was 228/117 on admission, placed order for Cardene drip following admission -Now blood pressure better controlled with amlodipine and labetalol - Continue Hydralazine IV as needed // History of CHF - Ef 40-45%, compensated Brief history: 57 year old -British male with past medical history significant for type 2 diabetes mellitus, medication noncompliance, diabetic foot ulcer status post amputation of the the left toe, hypertension, congestive heart failure presented to the emergency department for complaints of confusion. In the emergency department glucose level was in the 831s, he has CHIDI with hyperkalemia K of 6.7, Na 121, blood pressure was in the 228/117s. Patient started on insulin drip, obtained CT head. Patient admitted to ICU for further management. Patient moved from [place] a year ago and does not have a PCP. Radiological test: Head CT - no acute intracranial process Chest x-ray - no infiltrates Left lower extremity x-ray/MRI - soft tissue swelling no abscess or osteomyelitis seen Arterial Doppler of lower extremity Hospitalist Physical exam: GENERAL: well-developed and well-nourished male lying on bed appeared to be in no discomfort. HEENT: Normocephalic. Atraumatic. No conjunctival congestion or icterus. Patient has moist mucous membranes. NECK: Supple. Trachea midline. CHEST/LUNGS: Clear to auscultated bilaterally, breathing nonlabored. No wheezes crackles or rhonchi. HEART/CARDIOVASCULAR: Regular in rate and rhythm. S1 and S2 positive. ABDOMEN: Abdomen is soft, nontender. Patient has normal bowel sounds. SKIN: There is no rash. Warm and dry. NEURO: No focal motor deficit. Follows command. MUSCULOSKELETAL: No joint effusion or tenderness. EXTRIMITY: No edema, no cyanosis or clubbing. Left foot with wound dressing PSYCH: Cooperative. Subjective Date of service: 05/25/17 Principal diagnosis: diabetic foot ulcer Interval history: Patient seen and examined. Medical records and medication list reviewed. No acute event overnight noted by the RN. Patient denies any chest pain or difficulty breathing. Patient is tolerating diet. Discussed plan of care at bedside with patient. Renal function slightly worse today, having good urine output Objective - Constitutional Vitals: Vital Signs - 12hr 05/24/17 05/24/17 05/24/17 20:27 22:00 23:54 Temperature 98.2 F Pulse Rate 83 83 78 Pulse Rate [ 83 From Monitor] Respiratory 18 20 Rate Blood Pressure 142/71 Blood Pressure 125/64 [Right] O2 Sat by Pulse 95 96 Oximetry 05/25/17 05/25/17 05/25/17 00:31 03:38 04:48 Temperature 98.6 F 97.6 F Pulse Rate 79 74 74 Pulse Rate [ From Monitor] Respiratory 18 Rate Blood Pressure 123/61 Blood Pressure 141/71 123/61 [Right] O2 Sat by Pulse 95 95 Oximetry 05/25/17 05/25/17 05/25/17 08:02 08:03 08:53 Temperature 98.7 F 98.7 F Pulse Rate 80 80 78 Pulse Rate [ From Monitor] Respiratory 18 18 Rate Blood Pressure 155/73 Blood Pressure 155/73 [Right] O2 Sat by Pulse 97 98 98 Oximetry - Labs CBC & Chem 7: 05/25/17 07:26 05/25/17 07:26 Labs: Abnormal lab results 05/24/17 05/24/17 05/24/17 Range/Units 10:18 11:38 12:15 RBC (3.65-5.03) M/mm3 Hgb (11.8-15.2) gm/dl Hct (35.5-45.6) % MCV (84-94) fl MCH (28-32) pg Lymph % (Auto) (13.4-35.0) % Gallia % (Auto) (0.0-7.3) % Eos % (Auto) (0.0-4.3) % POC ABG pO2 69 L (80-105) Creatinine (0.8-1.5) mg/dL Glucose (75-100) mg/dL POC Glucose 251 H (70-105) Calcium (8.4-10.2) mg/dL Vancomycin Trough 24.9 H (5.0-20.0) ug/mL 05/24/17 05/24/17 05/25/17 Range/Units 15:52 20:59 03:49 RBC (3.65-5.03) M/mm3 Hgb (11.8-15.2) gm/dl Hct (35.5-45.6) % MCV (84-94) fl MCH (28-32) pg Lymph % (Auto) (13.4-35.0) % Gallia % (Auto) (0.0-7.3) % Eos % (Auto) (0.0-4.3) % POC ABG pO2 (80-105) Creatinine (0.8-1.5) mg/dL Glucose (75-100) mg/dL POC Glucose 259 H 350 H 131 H (70-105) Calcium (8.4-10.2) mg/dL Vancomycin Trough (5.0-20.0) ug/mL 05/25/17 05/25/17 Range/Units 07:26 07:26 RBC 3.39 L (3.65-5.03) M/mm3 Hgb 9.1 L (11.8-15.2) gm/dl Hct 27.6 L (35.5-45.6) % MCV 81 L (84-94) fl MCH 27 L (28-32) pg Lymph % (Auto) 35.7 H (13.4-35.0) % Gallia % (Auto) 12.7 H (0.0-7.3) % Eos % (Auto) 6.1 H (0.0-4.3) % POC ABG pO2 (80-105) Creatinine 1.9 H (0.8-1.5) mg/dL Glucose 126 H (75-100) mg/dL POC Glucose (70-105) Calcium 8.0 L (8.4-10.2) mg/dL Vancomycin Trough (5.0-20.0) ug/mL
--- NOTE | 2017-05-25 09:58 | Progress Note ---
Assessment and Plan (1) CHIDI (acute kidney injury) Current Visit: Yes Status: Acute Plan to address problem: stable Cr since yeserday urine eos are pending will start gentle IVF NS 50 cc/h renal US negative for obstruction elevated protein to Cr ratio, secondary GN work up is pending but negative so fars for HCV, HBV and HIV Renally dose medications Obtain daily weights Monitor I/O's Monitor renal function closely (2) Diabetic ketoacidosis Current Visit: Yes Status: Acute Plan to address problem: S/P insulin drip Now on SQ insulin (3) Hypertension Current Visit: Yes Status: Acute Plan to address problem: improved, cont labetalol and amlodipine (4) Hyperkalemia Current Visit: Yes Status: Acute Plan to address problem: Resolved (5) Hypophosphatemia Current Visit: Yes Status: Acute Plan to address problem: replete as needed (6) Ulcer of left foot Current Visit: Yes Status: Acute Plan to address problem: Wound dressing changes Subjective Date of service: 05/25/17 Principal diagnosis: diabetic foot ulcer Interval history: denies chest pain, SOB. Objective - Vital Signs Vital signs: Vital Signs - 12hr 05/24/17 05/24/17 05/25/17 22:00 23:54 00:31 Temperature 98.6 F Pulse Rate 83 78 79 Pulse Rate [ 83 From Monitor] Respiratory 20 18 Rate Blood Pressure 142/71 Blood Pressure 141/71 [Right] O2 Sat by Pulse 96 95 Oximetry 05/25/17 05/25/17 05/25/17 03:38 04:48 08:02 Temperature 97.6 F 98.7 F Pulse Rate 74 74 80 Pulse Rate [ From Monitor] Respiratory 18 Rate Blood Pressure 123/61 155/73 Blood Pressure 123/61 [Right] O2 Sat by Pulse 95 97 Oximetry 05/25/17 05/25/17 08:03 08:53 Temperature 98.7 F Pulse Rate 80 78 Pulse Rate [ From Monitor] Respiratory 18 Rate Blood Pressure Blood Pressure 155/73 [Right] O2 Sat by Pulse 98 98 Oximetry - General Appearance General appearance: well-developed, well-nourished, appears stated age EENT: ATNC, PERRL, mucous membranes moist Neck: no JVD, no carotid bruit Respiratory: Present: Clear to Ascultation. Absent: Rales Cardiology: regular, S1S2 Gastrointestinal: normoactive bowel sounds, no tenderness, no distended Integumentary: no rash, warm and dry Neurologic: no focal deficit, no asterixis, alert and oriented x3 Musculoskeletal: other (no edema in BLE) Psychiatric: mood/affect appropriate, cooperative - Lab 05/25/17 07:26 05/25/17 07:26 Most recent lab results Calcium 8.0 mg/dL (8.4-10.2) L 05/25/17 07:26 Phosphorus 3.70 mg/dL (2.5-4.5) 05/25/17 07:26 Magnesium 2.10 mg/dL (1.7-2.3) 05/22/17 02:20 Urine Creatinine 144.2 mg/dL (0.1-20.0) H 05/23/17 Unknown Urine Sodium 54 mmol/L 05/23/17 Unknown Urine Total Protein 199 mg/dL (5-11.8) H 05/23/17 Unknown
[2017-05-25] MEDS ORDERED: NACL 0.9% 1000 ML 1,000 ML IV SCH (10:00)
[2017-05-25] MEDS: SODIUM CHLORIDE FLUSH SYRINGE 10 ML IV SCH ×2 (10:00→23:46)
[2017-05-25] MEDS ORDERED: LEVAQUIN 500MG/100ML 500 MG/100 ML BAG IV SCH (10:00)
[2017-05-25] MEDS: HEPARIN SUB-Q SCH ×2 (10:06→21:40)
[2017-05-25] MEDS: NORVASC PO SCH (10:07)
[2017-05-25] MEDS: PEPCID PO SCH ×2 (10:07→21:40)
[2017-05-25] MEDS: ASPIRIN PR SCH (11:52)
--- NOTE | 2017-05-25 11:57 | Progress Note ---
Assessment and Plan Diabetic ketoacidosis Metabolic acidosis Malignant hypertension Acute encephalopathy(toxic, metabolic) Acute renal insufficiency Hyperkalemia Diabetic foot ulcer Documented history of medical non-compliance -DKA mangement per protocol -Avoid nephrotoxics and adjust medications for CrCL/GFR -Start on oral antihypertensive medications, if patient passes swallow evaluation -prn IV anti-hypertensives -Bedside swallow evaluation -MRI foot to r/o osteomyelitis -Wound care consult -Emprirc Vancomycin and Zosyn for diabetic foot ulcer, appears infected -VTE prophylaxis Subjective Date of service: 05/25/17 Principal diagnosis: diabetic foot ulcer Interval history: Patient seen and examined. Vitals, labs, medications, chart reviewed No acute event overnight noted by the RN. Patient denies any chest pain or difficulty breathing. Patient is tolerating diet. Objective - Exam Narrative Exam: General appearance: Alert in NAD, slurred speech Eyes: anicteric sclerae, moist conjunctivae; no lid-lag; PERRLA HENT: Atraumatic; oropharynx clear Neck: Trachea midline; supple, no thyromegaly or lymphadenopathy Lungs: CTA, with normal respiratory effort and no intercostal retractions CV: RRR, no murmurs Abdomen: Soft, non-tender; no masses or hepatosplenomegaly Extremities: left foot 5th mt ulcer with mild erythema/exudate. right 1st mt ulcer surrounding by callus Skin: Normal temperature, turgor and texture; no rash, ulcers or subcutaneous nodules Psych: somnolent Neuro: somnolent. Moving all extermities Lines: No CVL / PICC Vital Signs - 12hr 05/24/17 05/25/17 05/25/17 23:54 00:31 03:38 Temperature 98.6 F Pulse Rate 78 79 74 Respiratory 18 Rate Blood Pressure 142/71 123/61 Blood Pressure 141/71 [Right] O2 Sat by Pulse 96 95 95 Oximetry 05/25/17 05/25/17 05/25/17 04:48 08:02 08:03 Temperature 97.6 F 98.7 F Pulse Rate 74 80 78 Respiratory 18 Rate Blood Pressure 155/73 155/73 Blood Pressure 123/61 [Right] O2 Sat by Pulse 97 98 Oximetry 05/25/17 05/25/17 05/25/17 08:53 10:00 10:07 Temperature 98.7 F Pulse Rate 78 78 78 Respiratory 18 Rate Blood Pressure 155/73 Blood Pressure 155/73 [Right] O2 Sat by Pulse 98 Oximetry Constitutional: no acute distress, alert Eyes: non-icteric ENT: oropharynx moist Ascultation: Bilateral: clear Cardiovascular: regular rate and rhythm Gastrointestinal: normoactive bowel sounds, soft, non-tender Integumentary: other (Left foot ulcer.) Extremities: other (Left foot ulcer.) Neurologic: normal mental status, non-focal exam, pupils equal and round, CN II- XII normal Psychiatric: depressed CBC and BMP: 05/25/17 07:26 05/25/17 07:26 ABG, PT/INR, D-dimer: ABG POC ABG pH 7.448 (7.35-7.45) 05/24/17 11:38 POC ABG pCO2 39.5 (35-45) 05/24/17 11:38 POC ABG pO2 69 (80-105) L 05/24/17 11:38 POC ABG HCO3 27.3 05/24/17 11:38 POC ABG Total CO2 29 05/24/17 11:38 POC ABG O2 Sat 94 05/24/17 11:38 PT/INR, D-dimer PT 11.9 Sec. (12.2-14.9) L 05/22/17 02:20 INR 0.84 (0.87-1.13) L 05/22/17 02:20 Abnormal lab findings: Abnormal Labs 05/21/17 05/21/17 05/22/17 22:09 22:46 00:01 RBC Hgb 10.1 L Hct 31.6 L MCV MCH 27 L Lymph % (Auto) Parker % (Auto) 8.5 H Eos % (Auto) PT INR POC ABG pO2 Sodium 121 L Potassium 6.7 H* Chloride 83.2 L BUN 22 H Creatinine 1.8 H Glucose 831 H* POC Glucose Hemoglobin A1c Calcium Phosphorus 2.20 L Total Protein Albumin HDL Cholesterol Urine Creatinine Urine Total Protein Vancomycin Trough 05/22/17 05/22/17 05/22/17 00:01 02:20 02:20 RBC Hgb Hct MCV MCH Lymph % (Auto) Parker % (Auto) Eos % (Auto) PT INR POC ABG pO2 Sodium 124 L Potassium 5.1 H D Chloride 86.0 L BUN 22 H Creatinine 1.7 H Glucose 767 H* POC Glucose Hemoglobin A1c 15.7 H Calcium Phosphorus Total Protein Albumin HDL Cholesterol 36 L Urine Creatinine Urine Total Protein Vancomycin Trough 05/22/17 05/22/17 05/22/17 02:20 02:20 02:20 RBC Hgb Hct MCV MCH Lymph % (Auto) Parker % (Auto) Eos % (Auto) PT 11.9 L INR 0.84 L POC ABG pO2 Sodium 130 L Potassium Chloride 90.5 L BUN Creatinine 1.7 H Glucose 508 H* POC Glucose Hemoglobin A1c Calcium Phosphorus 1.70 L D Total Protein Albumin HDL Cholesterol Urine Creatinine Urine Total Protein Vancomycin Trough 05/22/17 05/22/17 05/22/17 02:26 03:52 05:01 RBC Hgb Hct MCV MCH Lymph % (Auto) Parker % (Auto) Eos % (Auto) PT INR POC ABG pO2 Sodium Potassium Chloride BUN Creatinine Glucose POC Glucose 458 H 367 H 270 H Hemoglobin A1c Calcium Phosphorus Total Protein Albumin HDL Cholesterol Urine Creatinine Urine Total Protein Vancomycin Trough 05/22/17 05/22/17 05/22/17 05:55 06:46 06:48 RBC Hgb Hct MCV MCH Lymph % (Auto) Parker % (Auto) Eos % (Auto) PT INR POC ABG pO2 Sodium Potassium 3.4 L Chloride BUN Creatinine 1.6 H Glucose 166 H POC Glucose 206 H 179 H Hemoglobin A1c Calcium Phosphorus Total Protein Albumin HDL Cholesterol Urine Creatinine Urine Total Protein Vancomycin Trough 05/22/17 05/22/17 05/22/17 08:16 08:43 09:32 RBC Hgb Hct MCV MCH Lymph % (Auto) Parker % (Auto) Eos % (Auto) PT INR POC ABG pO2 Sodium Potassium Chloride BUN Creatinine 1.6 H Glucose 125 H POC Glucose 120 H 121 H Hemoglobin A1c Calcium Phosphorus Total Protein Albumin HDL Cholesterol Urine Creatinine Urine Total Protein Vancomycin Trough 05/22/17 05/22/17 05/22/17 10:17 11:13 12:00 RBC Hgb Hct MCV MCH Lymph % (Auto) Parker % (Auto) Eos % (Auto) PT INR POC ABG pO2 Sodium Potassium Chloride BUN Creatinine Glucose POC Glucose 143 H 161 H 166 H Hemoglobin A1c Calcium Phosphorus Total Protein Albumin HDL Cholesterol Urine Creatinine Urine Total Protein Vancomycin Trough 05/22/17 05/22/17 05/22/17 17:00 17:21 21:55 RBC Hgb Hct MCV MCH Lymph % (Auto) Parker % (Auto) Eos % (Auto) PT INR POC ABG pO2 Sodium 135 L Potassium Chloride 96.3 L BUN Creatinine Glucose 142 H POC Glucose 149 H 183 H Hemoglobin A1c Calcium Phosphorus Total Protein Albumin HDL Cholesterol Urine Creatinine Urine Total Protein Vancomycin Trough 05/22/17 05/23/17 05/23/17 23:37 01:06 05:53 RBC Hgb Hct MCV MCH Lymph % (Auto) Parker % (Auto) Eos % (Auto) PT INR POC ABG pO2 Sodium 136 L Potassium Chloride BUN Creatinine 1.8 H 1.6 H 1.7 H Glucose 167 H 142 H 144 H POC Glucose Hemoglobin A1c Calcium Phosphorus Total Protein 6.2 L Albumin 3.2 L HDL Cholesterol Urine Creatinine Urine Total Protein Vancomycin Trough 05/23/17 05/23/17 05/23/17 11:30 16:38 21:29 RBC Hgb Hct MCV MCH Lymph % (Auto) Parker % (Auto) Eos % (Auto) PT INR POC ABG pO2 Sodium Potassium Chloride BUN Creatinine Glucose POC Glucose 315 H 326 H 301 H Hemoglobin A1c Calcium Phosphorus Total Protein Albumin HDL Cholesterol Urine Creatinine Urine Total Protein Vancomycin Trough 05/23/17 05/24/17 05/24/17 Unknown 06:38 06:38 RBC 3.24 L Hgb 8.7 L Hct 26.4 L MCV 82 L MCH 27 L Lymph % (Auto) 38.6 H Parker % (Auto) 11.2 H Eos % (Auto) 4.5 H PT INR POC ABG pO2 Sodium Potassium Chloride BUN Creatinine 1.9 H Glucose 175 H POC Glucose Hemoglobin A1c Calcium 7.8 L Phosphorus Total Protein Albumin HDL Cholesterol Urine Creatinine 144.2 H Urine Total Protein 199 H Vancomycin Trough 05/24/17 05/24/17 05/24/17 10:18 11:38 12:15 RBC Hgb Hct MCV MCH Lymph % (Auto) Parker % (Auto) Eos % (Auto) PT INR POC ABG pO2 69 L Sodium Potassium Chloride BUN Creatinine Glucose POC Glucose 251 H Hemoglobin A1c Calcium Phosphorus Total Protein Albumin HDL Cholesterol Urine Creatinine Urine Total Protein Vancomycin Trough 24.9 H 05/24/17 05/24/17 05/25/17 15:52 20:59 03:49 RBC Hgb Hct MCV MCH Lymph % (Auto) Parker % (Auto) Eos % (Auto) PT INR POC ABG pO2 Sodium Potassium Chloride BUN Creatinine Glucose POC Glucose 259 H 350 H 131 H Hemoglobin A1c Calcium Phosphorus Total Protein Albumin HDL Cholesterol Urine Creatinine Urine Total Protein Vancomycin Trough 05/25/17 05/25/17 07:26 07:26 RBC 3.39 L Hgb 9.1 L Hct 27.6 L MCV 81 L MCH 27 L Lymph % (Auto) 35.7 H Parker % (Auto) 12.7 H Eos % (Auto) 6.1 H PT INR POC ABG pO2 Sodium Potassium Chloride BUN Creatinine 1.9 H Glucose 126 H POC Glucose Hemoglobin A1c Calcium 8.0 L Phosphorus Total Protein Albumin HDL Cholesterol Urine Creatinine Urine Total Protein Vancomycin Trough
[2017-05-25] MEDS: BABY ASPIRIN PO SCH ×2 (12:15→12:24)
--- NOTE | 2017-05-25 14:12 | Progress Note ---
Assessment and Plan Assessment: 1) Left foot diabetic ulcer with cellulitis/abscess: -MRI showed no abscess no osteomyelitis -Wound cx MSSA, Klebsiella, Beta hem Strep G, Strep salivarius -CPR=0.1 2) DM on DKA 3) CHIDI 4) Hyponatremia 5) Hyperkalemia 6) Acute Encephalopathy: CT head neg Plan: -stop contact isolation -follow-up wound culture -stop vanco -continue unasyn -wound care -strict diabetes control -upon discharge will do doxycycline 100 mg po q12h and keflex 500 mg PO q6h total 10 days until I am signing off Thank you for your consultation, will follow up with you. Thelma Desir MD Infectious Diseases Specialist [facility] ([facility]) M [phone] O [phone] Subjective Date of service: 05/25/17 Principal diagnosis: diabetic foot ulcer Interval history: Feels better wants to go home. No fever Microbiology: Wound cultures: 05/21 MSSA, Klebsiella, Beta hem Strep G, Strep salivarius Current Antimicrobials: vanco 05/22 unasyn 05/23 Previous Antimicrobials: Objective - Exam Narrative Exam: General appearance: Alert in NAD, slurred speech Eyes: anicteric sclerae, moist conjunctivae; no lid-lag; PERRLA HENT: Atraumatic; oropharynx clear Neck: Trachea midline; supple, no thyromegaly or lymphadenopathy Lungs: CTA, with normal respiratory effort and no intercostal retractions CV: RRR, no murmurs Abdomen: Soft, non-tender; no masses or hepatosplenomegaly Extremities: left foot 5th mt ulcer with mild erythema/exudate. right 1st mt ulcer surrounding by callus - no examined today Skin: Normal temperature, turgor and texture; no rash, ulcers or subcutaneous nodules Psych: somnolent Neuro: somnolent. Moving all extermities Lines: No CVL / PICC - Constitutional Vitals: Vital Signs Temp Pulse Resp BP Pulse Ox 98.9 F 83 18 146/55 96 05/25/17 12:59 05/25/17 12:59 05/25/17 12:59 05/25/17 12:59 05/25/17 12:59 Temperature -Last 24 Hours Temperature 98.9 F Temperature 98.7 F Temperature 98.7 F Temperature 97.6 F Temperature 98.6 F Temperature 98.2 F - Labs CBC & Chem 7: 05/25/17 07:26 05/25/17 07:26 Labs: Abnormal lab results 05/24/17 05/24/17 05/25/17 Range/Units 15:52 20:59 03:49 RBC (3.65-5.03) M/mm3 Hgb (11.8-15.2) gm/dl Hct (35.5-45.6) % MCV (84-94) fl MCH (28-32) pg Lymph % (Auto) (13.4-35.0) % [place] % (Auto) (0.0-7.3) % Eos % (Auto) (0.0-4.3) % Creatinine (0.8-1.5) mg/dL Glucose (75-100) mg/dL POC Glucose 259 H 350 H 131 H (70-105) Calcium (8.4-10.2) mg/dL 05/25/17 05/25/17 05/25/17 Range/Units 07:26 07:26 12:26 RBC 3.39 L (3.65-5.03) M/mm3 Hgb 9.1 L (11.8-15.2) gm/dl Hct 27.6 L (35.5-45.6) % MCV 81 L (84-94) fl MCH 27 L (28-32) pg Lymph % (Auto) 35.7 H (13.4-35.0) % [place] % (Auto) 12.7 H (0.0-7.3) % Eos % (Auto) 6.1 H (0.0-4.3) % Creatinine 1.9 H (0.8-1.5) mg/dL Glucose 126 H (75-100) mg/dL POC Glucose 295 H (70-105) Calcium 8.0 L (8.4-10.2) mg/dL
[2017-05-25] MEDS: MORPHINE IV PRN (23:44)
[2017-05-26] MEDS: UNASYN/NS 3 GM/100 ML 3 GM/100 ML BAG IV SCH ×2 (05:01→12:51)
[2017-05-26 05:53] LABS: Basophils % (Auto) 0.6 % (0.0-1.8); Eosinophils # (Auto) 0.3 K/mm3 (0.0-0.4); Eosinophils % (Auto) 4.7 % (0.0-4.3); Hematocrit 26.9 % (35.5-45.6); Hemoglobin 8.9 gm/dl (11.8-15.2); Lymphocytes # (Auto) 1.9 K/mm3 (1.2-5.4); Lymphocytes % (Auto) 32.9 % (13.4-35.0); Mean Corpuscular HGB Conc 33 % (32-34); Mean Corpuscular Hemoglobin 27 pg (28-32); Mean Corpuscular Volume 82 fl (84-94); Monocytes # (Auto) 0.6 K/mm3 (0.0-0.8); Monocytes % (Auto) 10.7 % (0.0-7.3); Platelet Count 221 K/mm3 (140-440); Red Blood Count 3.27 M/mm3 (3.65-5.03); Red Cell Distribution Width 14.6 % (13.2-15.2)
[2017-05-26 06:18] LABS: Calcium 7.8 mg/dL (8.4-10.2)
[2017-05-26] MEDS: HumuLIN R SUB-Q SCH ×3 (08:56→17:34)
[2017-05-26] MEDS: NORMODYNE PO SCH ×2 (08:57→14:42)
[2017-05-26] MEDS: BABY ASPIRIN PO SCH (09:01)
[2017-05-26] MEDS: NORVASC PO SCH (09:01)
[2017-05-26] MEDS: HEPARIN SUB-Q SCH (09:02)
[2017-05-26] MEDS: PEPCID PO SCH (09:02)
--- NOTE | 2017-05-26 09:54 | Progress Note ---
Assessment and Plan (1) CHIDI (acute kidney injury) Current Visit: Yes Status: Acute Plan to address problem: improved kidney function with gentle IV hydration cont to hold ACEI can be discharged from renal standpoint, will be followed in my office within 1 week of discharge renal US negative for obstruction Renally dose medications Obtain daily weights Monitor I/O's Monitor renal function closely (2) Diabetic ketoacidosis Current Visit: Yes Status: Acute Plan to address problem: S/P insulin drip Now on SQ insulin (3) Hypertension Current Visit: Yes Status: Acute Plan to address problem: improved, cont labetalol and amlodipine (4) Hyperkalemia Current Visit: Yes Status: Acute Plan to address problem: Resolved (5) Hypophosphatemia Current Visit: Yes Status: Acute Plan to address problem: replete as needed (6) Ulcer of left foot Current Visit: Yes Status: Acute Plan to address problem: Wound dressing changes Subjective Date of service: 05/26/17 Principal diagnosis: diabetic foot ulcer Interval history: comfortable Objective - Vital Signs Vital signs: Vital Signs - 12hr 05/25/17 05/25/17 05/25/17 22:00 23:36 23:37 Temperature 98.1 F Pulse Rate 77 Respiratory 20 18 Rate Blood Pressure 134/72 O2 Sat by Pulse 94 Oximetry 05/26/17 05/26/17 05/26/17 04:00 08:08 08:57 Temperature 98.5 F 98.2 F Pulse Rate 76 79 79 Respiratory 18 20 Rate Blood Pressure 122/52 163/74 163/74 O2 Sat by Pulse 97 95 Oximetry 05/26/17 09:01 Temperature Pulse Rate 79 Respiratory Rate Blood Pressure 163/73 O2 Sat by Pulse Oximetry - General Appearance General appearance: well-developed, well-nourished EENT: ATNC, PERRL, mucous membranes moist Neck: no JVD, no carotid bruit Respiratory: Present: Clear to Ascultation. Absent: Rales, Ronchi Cardiology: regular, S1S2 Gastrointestinal: normoactive bowel sounds, no hypoactive bowel sounds, no tenderness, no distended Integumentary: no rash, warm and dry Neurologic: no focal deficit, no asterixis, alert and oriented x3 Musculoskeletal: other (trace pitting edema in BLE) Psychiatric: mood/affect appropriate, cooperative - Lab 05/26/17 04:32 05/26/17 04:32 Most recent lab results Calcium 7.8 mg/dL (8.4-10.2) L 05/26/17 04:32 Phosphorus 3.30 mg/dL (2.5-4.5) 05/26/17 04:32 Magnesium 2.10 mg/dL (1.7-2.3) 05/22/17 02:20 Urine Creatinine 144.2 mg/dL (0.1-20.0) H 05/23/17 Unknown Urine Sodium 54 mmol/L 05/23/17 Unknown Urine Total Protein 199 mg/dL (5-11.8) H 05/23/17 Unknown
[2017-05-26] MEDS ORDERED: VANCOMYCIN 1,750 MG in NACL 0.9% 500 ML 500 ML IV SCH (10:00)
[2017-05-26] MEDS: SODIUM CHLORIDE FLUSH SYRINGE 10 ML IV SCH (10:16)
--- NOTE | 2017-05-26 11:39 | Progress Note ---
Assessment and Plan // CHIDI - Likely from severe dehydration with the vasomotor nephropathy vs tubular necrosis - Continue IV fluid, renal dose medications - Normal renal ultrasound results without any hydronephrosis or obstruction - Nephrology following the patient, creatinine improved to 1.6 today //Left foot diabetic ulcer with cellulitis/abscess: - MRI showed no abscess no osteomyelitis - Wound cx GNR and Staph aureus - Continue antibiotics per ID recommendations (on Unasyn) - upon discharge will do doxycycline 100 mg po q12h and keflex 500 mg PO q6h total 10 days until / // Uncontrolled DM with HHNS (hyperosmolar hyperglycemic nonketotic syndrome) - Placed on insulin drip following admission - Now off insulin drip, continue to adjust subcutaneous insulin to maintain good Glycemic control - Patient's A1c 15.7 // Hyponatremia - Likely from hyperglycemia - Continue IV fluid // Hyperkalemia - Resolved with improving blood glucose level // Acute Encephalopathy: CT head neg - Patient presented with slurred speech and confusion - Symptom most likely related to hyperglycemic nonketotic comma - Patient is alert awake and oriented 3 now - Exhibits No Focal Neurological Deficits // Malignant Hypertension - His blood pressure was 228/117 on admission, placed order for Cardene drip following admission - Now blood pressure better controlled with amlodipine and labetalol - Continue Hydralazine IV as needed // History of CHF - Ef 40-45%, compensated - cont asp, statin, BB - can start ACEI when renal function improves Brief history: 57 year old -[place] male with past medical history significant for type 2 diabetes mellitus, medication noncompliance, diabetic foot ulcer status post amputation of the the left toe, hypertension, congestive heart failure presented to the emergency department for complaints of confusion. In the emergency department glucose level was in the 831s, he has CHIDI with hyperkalemia K of 6.7, Na 121, blood pressure was in the 228/117s. Patient started on insulin drip, obtained CT head. Patient admitted to ICU for further management. Patient moved from [place] a year ago and does not have a PCP. Radiological test: Head CT - no acute intracranial process Chest x-ray - no infiltrates Left lower extremity x-ray/MRI - soft tissue swelling no abscess or osteomyelitis seen Arterial Doppler of lower extremity Hospitalist Physical exam: GENERAL: well-developed and well-nourished male lying on bed appeared to be in no discomfort. HEENT: Normocephalic. Atraumatic. No conjunctival congestion or icterus. Patient has moist mucous membranes. NECK: Supple. Trachea midline. CHEST/LUNGS: Clear to auscultated bilaterally, breathing nonlabored. No wheezes crackles or rhonchi. HEART/CARDIOVASCULAR: Regular in rate and rhythm. S1 and S2 positive. ABDOMEN: Abdomen is soft, nontender. Patient has normal bowel sounds. SKIN: There is no rash. Warm and dry. NEURO: No focal motor deficit. Follows command. MUSCULOSKELETAL: No joint effusion or tenderness. EXTRIMITY: No edema, no cyanosis or clubbing. Left foot with wound dressing PSYCH: Cooperative. Subjective Date of service: 05/26/17 Principal diagnosis: diabetic foot ulcer Interval history: Patient seen and examined. Medical records and medication list reviewed. No acute event overnight noted by the RN. Patient denies any chest pain or difficulty breathing. Patient is tolerating diet. Discussed plan of care at bedside with patient. Renal function slightly worse today, having good urine output Objective - Constitutional Vitals: Vital Signs - 12hr 05/26/17 05/26/17 05/26/17 04:00 08:08 08:57 Temperature 98.5 F 98.2 F Pulse Rate 76 79 79 Pulse Rate [ Apical] Respiratory 18 20 Rate Blood Pressure 122/52 163/74 163/74 O2 Sat by Pulse 97 95 Oximetry 05/26/17 05/26/17 09:01 10:00 Temperature Pulse Rate 79 Pulse Rate [ 78 Apical] Respiratory 19 Rate Blood Pressure 163/73 O2 Sat by Pulse Oximetry - Labs CBC & Chem 7: 05/26/17 04:32 05/26/17 04:32 Labs: Abnormal lab results 05/25/17 05/25/17 05/25/17 Range/Units 08:03 12:26 16:46 RBC (3.65-5.03) M/mm3 Hgb (11.8-15.2) gm/dl Hct (35.5-45.6) % MCV (84-94) fl MCH (28-32) pg [place] % (Auto) (0.0-7.3) % Eos % (Auto) (0.0-4.3) % Creatinine (0.8-1.5) mg/dL Glucose (75-100) mg/dL POC Glucose 187 H 295 H 229 H (70-105) Calcium (8.4-10.2) mg/dL 05/25/17 05/26/17 05/26/17 Range/Units 20:27 04:32 04:32 RBC 3.27 L (3.65-5.03) M/mm3 Hgb 8.9 L (11.8-15.2) gm/dl Hct 26.9 L (35.5-45.6) % MCV 82 L (84-94) fl MCH 27 L (28-32) pg [place] % (Auto) 10.7 H (0.0-7.3) % Eos % (Auto) 4.7 H (0.0-4.3) % Creatinine 1.6 H (0.8-1.5) mg/dL Glucose 109 H (75-100) mg/dL POC Glucose 200 H (70-105) Calcium 7.8 L (8.4-10.2) mg/dL
--- NOTE | 2017-05-26 12:19 | Vascular Lab Report ---
CAROTID DUPLEX STUDY: RIGHT PSVEDV CCA PROX:[id number] CCA DIST:[id number] ICA PROX:4211 ICA MID:6022 ICA DIST:7527 ECA: [id number] VERT: 58 19 LEFT PSVEDV CCA PROX:[id number] CCA DIST:8519 ICA PROX:5618 ICA MID:6422 ICA DIST:6425 ECA: 9415 VERT: 47 15 REASON FOR EXAM: Stroke. COMMENTS ON THE RIGHT: Doppler frequency analysis is consistent with 16 to 49 percent diameter reduction of the internal carotid artery. Minimal amount of plaque is seen. The common carotid artery is patent. The external carotid artery is patent. The vertebral artery has antegrade flow. COMMENTS ON THE LEFT: Doppler frequency analysis is consistent with 16 to 49 percent diameter reduction of the internal carotid artery. Minimal amount of plaque is seen. The common carotid artery is patent. The external carotid artery is patent. The vertebral artery has antegrade flow. IMPRESSION: Less than 50% diameter reduction in the internal carotid arteries bilaterally.
--- NOTE | 2017-05-26 12:36 | Progress Note ---
Subjective Date of service: 05/26/17 Principal diagnosis: DKA; diabetic foot ulcer Interval history: Patient seen today for: Seen and examined at bedside; 24-hour events reviewed; nursing and respiratory care staff consulted; no adverse overnight events reported to me; Objective Vital Signs - 12hr 05/26/17 05/26/17 05/26/17 04:00 08:08 08:57 Temperature 98.5 F 98.2 F Pulse Rate 76 79 79 Pulse Rate [ Apical] Respiratory 18 20 Rate Blood Pressure 122/52 163/74 163/74 O2 Sat by Pulse 97 95 Oximetry 05/26/17 05/26/17 09:01 10:00 Temperature Pulse Rate 79 Pulse Rate [ 78 Apical] Respiratory 19 Rate Blood Pressure 163/73 O2 Sat by Pulse Oximetry Constitutional: no acute distress, alert Eyes: non-icteric ENT: oropharynx moist Ascultation: Bilateral: clear Cardiovascular: regular rate and rhythm Gastrointestinal: normoactive bowel sounds, soft, non-tender Integumentary: other (Left foot ulcer.) Extremities: other (Left foot ulcer.) Neurologic: normal mental status, non-focal exam, pupils equal and round, CN II- XII normal Psychiatric: depressed CBC and BMP: 05/26/17 04:32 05/26/17 04:32 ABG, PT/INR, D-dimer: ABG POC ABG pH 7.448 (7.35-7.45) 05/24/17 11:38 POC ABG pCO2 39.5 (35-45) 05/24/17 11:38 POC ABG pO2 69 (80-105) L 05/24/17 11:38 POC ABG HCO3 27.3 05/24/17 11:38 POC ABG Total CO2 29 05/24/17 11:38 POC ABG O2 Sat 94 05/24/17 11:38 PT/INR, D-dimer PT 11.9 Sec. (12.2-14.9) L 05/22/17 02:20 INR 0.84 (0.87-1.13) L 05/22/17 02:20 Abnormal lab findings: Abnormal Labs 05/21/17 05/21/17 05/22/17 22:09 22:46 00:01 RBC Hgb 10.1 L Hct 31.6 L MCV MCH 27 L Lymph % (Auto) [place] % (Auto) 8.5 H Eos % (Auto) PT INR POC ABG pO2 Sodium 121 L Potassium 6.7 H* Chloride 83.2 L BUN 22 H Creatinine 1.8 H Glucose 831 H* POC Glucose Hemoglobin A1c Calcium Phosphorus 2.20 L Total Protein Albumin HDL Cholesterol Urine Creatinine Urine Total Protein Vancomycin Trough 05/22/17 05/22/17 05/22/17 00:01 02:20 02:20 RBC Hgb Hct MCV MCH Lymph % (Auto) [place] % (Auto) Eos % (Auto) PT INR POC ABG pO2 Sodium 124 L Potassium 5.1 H D Chloride 86.0 L BUN 22 H Creatinine 1.7 H Glucose 767 H* POC Glucose Hemoglobin A1c 15.7 H Calcium Phosphorus Total Protein Albumin HDL Cholesterol 36 L Urine Creatinine Urine Total Protein Vancomycin Trough 05/22/17 05/22/17 05/22/17 02:20 02:20 02:20 RBC Hgb Hct MCV MCH Lymph % (Auto) [place] % (Auto) Eos % (Auto) PT 11.9 L INR 0.84 L POC ABG pO2 Sodium 130 L Potassium Chloride 90.5 L BUN Creatinine 1.7 H Glucose 508 H* POC Glucose Hemoglobin A1c Calcium Phosphorus 1.70 L D Total Protein Albumin HDL Cholesterol Urine Creatinine Urine Total Protein Vancomycin Trough 05/22/17 05/22/17 05/22/17 02:26 03:52 05:01 RBC Hgb Hct MCV MCH Lymph % (Auto) [place] % (Auto) Eos % (Auto) PT INR POC ABG pO2 Sodium Potassium Chloride BUN Creatinine Glucose POC Glucose 458 H 367 H 270 H Hemoglobin A1c Calcium Phosphorus Total Protein Albumin HDL Cholesterol Urine Creatinine Urine Total Protein Vancomycin Trough 05/22/17 05/22/17 05/22/17 05:55 06:46 06:48 RBC Hgb Hct MCV MCH Lymph % (Auto) [place] % (Auto) Eos % (Auto) PT INR POC ABG pO2 Sodium Potassium 3.4 L Chloride BUN Creatinine 1.6 H Glucose 166 H POC Glucose 206 H 179 H Hemoglobin A1c Calcium Phosphorus Total Protein Albumin HDL Cholesterol Urine Creatinine Urine Total Protein Vancomycin Trough 05/22/17 05/22/17 05/22/17 08:16 08:43 09:32 RBC Hgb Hct MCV MCH Lymph % (Auto) [place] % (Auto) Eos % (Auto) PT INR POC ABG pO2 Sodium Potassium Chloride BUN Creatinine 1.6 H Glucose 125 H POC Glucose 120 H 121 H Hemoglobin A1c Calcium Phosphorus Total Protein Albumin HDL Cholesterol Urine Creatinine Urine Total Protein Vancomycin Trough 05/22/17 05/22/17 05/22/17 10:17 11:13 12:00 RBC Hgb Hct MCV MCH Lymph % (Auto) [place] % (Auto) Eos % (Auto) PT INR POC ABG pO2 Sodium Potassium Chloride BUN Creatinine Glucose POC Glucose 143 H 161 H 166 H Hemoglobin A1c Calcium Phosphorus Total Protein Albumin HDL Cholesterol Urine Creatinine Urine Total Protein Vancomycin Trough 05/22/17 05/22/17 05/22/17 17:00 17:21 21:55 RBC Hgb Hct MCV MCH Lymph % (Auto) [place] % (Auto) Eos % (Auto) PT INR POC ABG pO2 Sodium 135 L Potassium Chloride 96.3 L BUN Creatinine Glucose 142 H POC Glucose 149 H 183 H Hemoglobin A1c Calcium Phosphorus Total Protein Albumin HDL Cholesterol Urine Creatinine Urine Total Protein Vancomycin Trough 05/22/17 05/23/17 05/23/17 23:37 01:06 05:53 RBC Hgb Hct MCV MCH Lymph % (Auto) [place] % (Auto) Eos % (Auto) PT INR POC ABG pO2 Sodium 136 L Potassium Chloride BUN Creatinine 1.8 H 1.6 H 1.7 H Glucose 167 H 142 H 144 H POC Glucose Hemoglobin A1c Calcium Phosphorus Total Protein 6.2 L Albumin 3.2 L HDL Cholesterol Urine Creatinine Urine Total Protein Vancomycin Trough 05/23/17 05/23/17 05/23/17 11:30 16:38 21:29 RBC Hgb Hct MCV MCH Lymph % (Auto) [place] % (Auto) Eos % (Auto) PT INR POC ABG pO2 Sodium Potassium Chloride BUN Creatinine Glucose POC Glucose 315 H 326 H 301 H Hemoglobin A1c Calcium Phosphorus Total Protein Albumin HDL Cholesterol Urine Creatinine Urine Total Protein Vancomycin Trough 05/23/17 05/24/17 05/24/17 Unknown 06:38 06:38 RBC 3.24 L Hgb 8.7 L Hct 26.4 L MCV 82 L MCH 27 L Lymph % (Auto) 38.6 H [place] % (Auto) 11.2 H Eos % (Auto) 4.5 H PT INR POC ABG pO2 Sodium Potassium Chloride BUN Creatinine 1.9 H Glucose 175 H POC Glucose Hemoglobin A1c Calcium 7.8 L Phosphorus Total Protein Albumin HDL Cholesterol Urine Creatinine 144.2 H Urine Total Protein 199 H Vancomycin Trough 05/24/17 05/24/1705/24/18 10:18 11:38 12:15 RBC Hgb Hct MCV MCH Lymph % (Auto) [place] % (Auto) Eos % (Auto) PT INR POC ABG pO2 69 L Sodium Potassium Chloride BUN Creatinine Glucose POC Glucose 251 H Hemoglobin A1c Calcium Phosphorus Total Protein Albumin HDL Cholesterol Urine Creatinine Urine Total Protein Vancomycin Trough 24.9 H 05/24/17 05/24/17 05/25/17 15:52 20:59 03:49 RBC Hgb Hct MCV MCH Lymph % (Auto) [place] % (Auto) Eos % (Auto) PT INR POC ABG pO2 Sodium Potassium Chloride BUN Creatinine Glucose POC Glucose 259 H 350 H 131 H Hemoglobin A1c Calcium Phosphorus Total Protein Albumin HDL Cholesterol Urine Creatinine Urine Total Protein Vancomycin Trough 05/25/17 05/25/17 05/25/17 07:26 07:26 08:03 RBC 3.39 L Hgb 9.1 L Hct 27.6 L MCV 81 L MCH 27 L Lymph % (Auto) 35.7 H [place] % (Auto) 12.7 H Eos % (Auto) 6.1 H PT INR POC ABG pO2 Sodium Potassium Chloride BUN Creatinine 1.9 H Glucose 126 H POC Glucose 187 H Hemoglobin A1c Calcium 8.0 L Phosphorus Total Protein Albumin HDL Cholesterol Urine Creatinine Urine Total Protein Vancomycin Trough 05/25/17 05/25/17 05/25/17 12:26 16:46 20:27 RBC Hgb Hct MCV MCH Lymph % (Auto) [place] % (Auto) Eos % (Auto) PT INR POC ABG pO2 Sodium Potassium Chloride BUN Creatinine Glucose POC Glucose 295 H 229 H 200 H Hemoglobin A1c Calcium Phosphorus Total Protein Albumin HDL Cholesterol Urine Creatinine Urine Total Protein Vancomycin Trough 05/26/17 05/26/17 04:32 04:32 RBC 3.27 L Hgb 8.9 L Hct 26.9 L MCV 82 L MCH 27 L Lymph % (Auto) [place] % (Auto) 10.7 H Eos % (Auto) 4.7 H PT INR POC ABG pO2 Sodium Potassium Chloride BUN Creatinine 1.6 H Glucose 109 H POC Glucose Hemoglobin A1c Calcium 7.8 L Phosphorus Total Protein Albumin HDL Cholesterol Urine Creatinine Urine Total Protein Vancomycin Trough
--- NOTE | 2017-05-26 16:32 | Discharge Summary ---
Providers - Providers Date of Admission: 05/22/17 00:10 Date of discharge: 05/26/17 Attending physician: STEPHANIE MCGEE 05/21/17 23:37 Consult to Physician [CONS] Stat Consulting Provider: FAYE MAGANA Reason For Exam: HYPERKALEMIA Notified:: yES 05/22/17 Consult to Physician [CONS] Routine Consulting Provider: ANJELICA BOOTH Reason For Exam: TIA Place consult to:: Neurology Notified:: y 05/22/17 00:31 Consult to Case Management [CONS] Routine Services Needed at Discharge: Drapery Estimator Notified:: y Was contact made?: Yes Consult to Dietitian/Nutrition [CONS] Routine Physician Instructions: Reason For Exam: DKA Reason for Consult: Nutrition Recommendations Reason for Consult: Diet education 05/22/17 00:32 Consult to Physician [CONS] Routine Consulting Provider: PATRICIA JOSEPH Reason For Exam: HHS for ICU admission Place consult to:: Lines Tender Notified:: Yes Phone number called:: [phone] Was contact made?: Yes If yes, spoke with:: Eric Soliz. Time called:: 08:25 Comment:: Spoke with Dr. Joseph at 0956 05/22/17 00:36 Occupational Therapy Evaluate and Treat [CONS] Routine Comment: Reason For Exam: Neuro deficits Physical Therapy Evaluation and Treat [CONS] Routine Comment: Reason For Exam: Neuro deficits 05/22/17 00:37 Speech Therapy Evaluation and Treat [CONS] Routine Reason For Exam: swallow eval 05/22/17 00:44 Consult to Physician [CONS] Routine Consulting Provider: HARIS FRAGA Reason For Exam: left foot abscess Place consult to:: wound surgeon Notified:: Yes Phone number called:: [phone], Was contact made?: Yes If yes, spoke with:: Queenie Time called:: 09:58 05/22/17 00:45 Consult to Physician [CONS] Routine Consulting Provider: SOFIA CAT Reason For Exam: left foot diabetic ulcer/ ?osteomyelitis Place consult to:: ID Notified:: Yes Phone number called:: [phone] If yes, spoke with:: Dr. Camarena Time called:: 08:20 05/22/17 00:57 Consult to Wound/ET Nurse [CONS] Routine Reason For Exam: wound eval - bilateral feet Primary care physician: ADRIANNA ROYAL Hospitalization Condition: Serious Hospital course: Brief history: 57 year old -Sudanese male with past medical history significant for type 2 diabetes mellitus, medication noncompliance, diabetic foot ulcer status post amputation of the the left toe, hypertension, congestive heart failure presented to the emergency department for complaints of confusion. In the emergency department glucose level was in the 831s, he has CHIDI with hyperkalemia K of 6.7, Na 121, blood pressure was in the 228/117s. Patient started on insulin drip, obtained CT head. Patient admitted to ICU for further management. Patient moved from [place] a year ago and does not have a PCP. Discharge diagnosis and management: // Uncontrolled DM with HHNS (hyperosmolar hyperglycemic nonketotic syndrome) - Placed on insulin drip following admission - Now off insulin drip, continue to adjust subcutaneous insulin to maintain good Glycemic control - Patient's A1c 15.7 // CHIDI - Likely from severe dehydration with the vasomotor nephropathy vs tubular necrosis - Continue IV fluid, renal dose medications - Normal renal ultrasound results without any hydronephrosis or obstruction - Nephrology was following the patient, creatinine improved to 1.6 today - he will cont to f/u out pt with nephrology //Left foot diabetic ulcer with cellulitis/abscess: - MRI showed no abscess no osteomyelitis - Wound cx GNR and Staph aureus - Continue antibiotics per ID recommendations (on Unasyn) - upon discharge cont doxycycline 100 mg po q12h and keflex 500 mg PO q6h total 10 days until 05/31/17 // Hyponatremia - Likely from hyperglycemia - Continue IV fluid // Hyperkalemia - Resolved with improving blood glucose level // Acute Encephalopathy: CT head neg - Patient presented with slurred speech and confusion - Symptom most likely related to hyperglycemic nonketotic comma - Patient is alert awake and oriented 3 now - Exhibits No Focal Neurological Deficits // Malignant Hypertension - His blood pressure was 228/117 on admission, placed order for Cardene drip following admission - Now blood pressure better controlled with amlodipine and labetalol - Continue Hydralazine IV as needed // History of CHF - Ef 40-45%, compensated - cont asp, statin, BB - can start ACEI when renal function improves Radiological test: Head CT - no acute intracranial process Chest x-ray - no infiltrates Left lower extremity x-ray/MRI - soft tissue swelling no abscess or osteomyelitis seen Arterial Doppler of lower extremity Hospitalist Physical exam: GENERAL: well-developed and well-nourished male lying on bed appeared to be in no discomfort. HEENT: Normocephalic. Atraumatic. No conjunctival congestion or icterus. Patient has moist mucous membranes. NECK: Supple. Trachea midline. CHEST/LUNGS: Clear to auscultated bilaterally, breathing nonlabored. No wheezes crackles or rhonchi. HEART/CARDIOVASCULAR: Regular in rate and rhythm. S1 and S2 positive. ABDOMEN: Abdomen is soft, nontender. Patient has normal bowel sounds. SKIN: There is no rash. Warm and dry. NEURO: No focal motor deficit. Follows command. MUSCULOSKELETAL: No joint effusion or tenderness. EXTRIMITY: No edema, no cyanosis or clubbing. Left foot with wound dressing PSYCH: Cooperative. Disposition: [id number]/TX-06 HOME UNDER HOME [facility] Time spent for discharge: 34 minutes Core Measure Documentation - Palliative Care Palliative Care/ Comfort Measures: Not Applicable - Core Measures Any of the following diagnoses?: heart failure - Heart Failure Discharge Requirements ZEINA/ARB for LVSD if EF <40%: No Reason for no ZEINA/ARB: Renal impairment Beta keyonna at discharge: Yes Exam - Constitutional Vitals: Temp Pulse Resp BP Pulse Ox 97.8 F 71 20 110/62 95 05/26/17 11:59 05/26/17 14:42 05/26/17 11:59 05/26/17 14:42 05/26/17 11:59 Plan Activity: advance as tolerated Weight Bearing Status: Weight Bear as Tolerated Diet: low fat, diabetic Wound: per wound nurse instructions Additional Instructions: f/u with PCP/[facility] and nephrology in one week. Continue wound care as instructed. repeat BMP in one week. Follow up with: ADRIANNA ROYAL MD [Primary Care Provider] - 3-5 Days Prescriptions: AtorvaSTATin [Lipitor] 10 mg PO QHS #30 tablet amLODIPine [Norvasc] 10 mg PO QDAY #30 tablet Aspirin [Aspirin BABY CHEW TAB] 81 mg PO QDAY #30 tab.chew Cephalexin [Keflex] 500 mg PO Q6HR #20 capsule Doxycycline [Vibramycin CAP] 100 mg PO Q12HR #10 capsule Insulin NPH/Regular [NovoLIN 70/30] 10 unit SUB-Q BIDDIAB 30 Days units Labetalol [Normodyne TAB] 200 mg PO TID #90 tablet
[2017-05-26 18:00] VITALS: BP 130/63
[2017-05-26] MEDS ORDERED: UNASYN/NS 3 GM/100 ML 3 GM/100 ML BAG IV SCH (18:00)
[2017-05-26 23:03] LABS: ANA Screen, IFA Negative (Negative)
[2017-05-27] MEDS ORDERED: KEFLEX PO SCH (06:00)
[2017-05-27] MEDS ORDERED: VIBRAMYCIN PO SCH (10:00)
[2017-05-27 22:04] LABS: Albumin 2.7 g/dL (3.8-4.8); Gamma Globulin 0.8 g/dL (0.8-1.7)
== END 2017-05-26 18:28 | disposition home health service (06) | DRG 91 ==
LOC: ED 21:21 → 4A 05-22 00:10 → CC1 05-22 00:35 → 4A 05-22 20:03
PROVIDERS: ADMIT Internal Medicine; ATTEND Internal Medicine
PROC: 4A033R1 Measurement of Arterial Saturation, Peripheral, Percutaneous Approach (ICD-10-PCS; principal; 2017-05-24)
DX: G92 Toxic encephalopathy (principal); N17.0 Acute kidney failure with tubular necrosis; E11.11 Type 2 diabetes mellitus with ketoacidosis with coma; E11.621 Type 2 diabetes mellitus with foot ulcer; I16.0 Hypertensive urgency; G45.9 Transient cerebral ischemic attack, unspecified; I11.0 Hypertensive heart disease with heart failure; I50.9 Heart failure, unspecified; I16.1 Hypertensive emergency; E87.5 Hyperkalemia; E83.39 Other disorders of phosphorus metabolism; L03.116 Cellulitis of left lower limb; E87.1 Hypo-osmolality and hyponatremia; E86.0 Dehydration; Z83.3 Family history of diabetes mellitus; Z91.14 Patient's other noncompliance with medication regimen; Z89.422 Acquired absence of other left toe(s); Z82.49 Family history of ischemic heart disease and other diseases of the circulatory system
CPT/HCPCS: 36415; 36600; 70450; 71045; 76770; 80048; 80053; 80061; 80202; 80307; 80320; 81001; 82550; 82553; 82570; 82803; 82962; 83036; 83735; 83930; 84100; 84156; 84165; 84300; 84443; 84484; 85025; 85610; 86038; 86140; 86160; 86706; 86803; 87076; 87116; 87186; 87806; 93005; 93010; 93306; 93880; 96374; 96375; G0480; J0295; J0360; J0610; J1644; J1815; J1818; J2270; J2405; J3370; J7030; J7040; J7050

== ENCOUNTER 2017-06-25 10:17 | Outpatient (CLI) | payer MEDICAID ==
--- NOTE | 2017-06-25 11:43 | XRay Report ---
ABDOMINAL SERIES INDICATION: Vomiting. COMPARISON: 05/22/2017 CXR. FINDINGS: Abdominal series, 4 radiographs, demonstrate nonobstructive bowel gas pattern without focal suspicious calcifications, pneumatosis or pneumoperitoneum. Moderate to large stool throughout colon/constipation. Accompanying chest radiograph demonstrates normal cardiomediastinal silhouette. Clear lungs. Right hemidiaphragm mildly elevated. Unremarkable bones. CONCLUSION: Constipation suspected, as described. Please correlate. Thank you for the opportunity to participate in this patient's care.
== END 2017-06-25 10:18 | disposition home or self-care (01) ==
LOC: XRAY 10:17
PROVIDERS: ATTEND Nurse Practitioner
DX: R11.10 Vomiting, unspecified (principal); J98.6 Disorders of diaphragm
CPT/HCPCS: 74022